=== PATIENT | female | born 1950 | race Two or more races ===

== ENCOUNTER 2020-05-04 14:59 | Inpatient (IN) | payer OTHER ==
[2020-05-04] VITALS (7 sets, daily range): BP systolic 109–140; BP diastolic 64–85
[~2020-05-04] VITALS: Ht 167.6 cm; Wt 131.1 kg
[2020-05-04] MEDS ORDERED: CEFTRIAXONE 1 G PREMIX 50 ML IV ONE (15:15)
[2020-05-04] MEDS ORDERED: SODIUM CHLORIDE 0.9% 1,000 ML IV ONE (15:15)
[2020-05-04] MEDS ORDERED: DEXAMETHASONE 10 MG/ML VIAL IV ONE (15:15)
[2020-05-04] MEDS ORDERED: AZITHROMYCIN 500 MG in DEXT 5% WATER 250 ML IV ONE (15:15)
[2020-05-04 16:11] LABS: BASOPHILS % 0.2 % (0.0-2.0); HEMATOCRIT. 41.1 % (36.0-48.0); HEMOGLOBIN. 12.9 g/dL (12.0-16.0); LYMPHOCYTES % 7.2 % (20.0-50.0); MEAN CORPUSCULAR HEMOGLOBIN 22.1 pg (28.0-32.0); MEAN CORPUSCULAR VOLUME 70.4 fL (81.0-99.0); MEAN PLATELET VOLUME 9.6 fl (7.4-10.4); MONOCYTES % 5.7 % (2.0-8.0); NEUTROPHILS % 86.9 % (40.0-76.0); PLATELET 232 x1000/uL (130-400); RED BLOOD CELL COUNT 5.84 mill/uL (4.2-5.4); RED CELL DISTRIBUTION WIDTH 17.1 % (11.6-14.6)
[2020-05-04 16:18] LABS: CHLORIDE 98 mEq/L (98-107)
[2020-05-04 16:25] LABS: D-DIMER 1.4 mg/L FEU (<0.50); PROTHROMBIN TIME 10.8 sec (9.6-11.0)
[2020-05-04 16:27] LABS: CREATINE KINASE 436 IU/L (26-192)
[2020-05-04] MEDS ORDERED: MAGNESIUM 2 G PREMIX 50 ML IV ONE (16:30)
[2020-05-04] MEDS ORDERED: IPRATROPIUM BROMIDE (0.02%) 0.5MG/2.5ML NEB HHN STA (16:31)
[2020-05-04] MEDS ORDERED: ALBUTEROL (0.083%) 2.5MG/3ML NEB HHN STA (16:31)
[2020-05-04] MEDS ORDERED: ALBUTEROL (0.083%) 2.5MG/3ML NEB ONE (16:57)
[2020-05-04] MEDS ORDERED: CLONIDINE 0.1MG TABLET PO PRN (17:30)
[2020-05-04] MEDS ORDERED: ENOXAPARIN 40MG/0.4ML SYR SUBCUT SCH (18:00)
[2020-05-04] MEDS ORDERED: DEXTROSE 50% WATER 50ML SYRINGE IV PRN (20:30)
[2020-05-04] MEDS: BLOOD SUGAR DIAGNOSTIC STRIP TEST SCH (21:58)
[2020-05-04 21:59] LABS: BG BASE EXCESS 0.7 mmol/L (-2.0-2.0); BG CARBOXYHEMOGLOBIN 0.4 % (0.5-1.5); BG DEOXYHEMOGLOBIN 5.4 % (0.0-5.0); BG FRACTION INSPIRED OXYGEN 100; BG HCO3 ACT 24.8 mmol/L (22.0-26.0); BG METHEMOGLOBIN 0.3 % (0.0-1.5); BG OXYGEN SATURATION 94.6 % (92.0-98.5); BG OXYHEMOGLOBIN 93.9 % (94.0-97.0); BG PCO2 37.8 mmHg (35.0-45.0); BG PH 7.434 (7.350-7.450); BG PO2 72.7 mmHg (75.0-100.0); BG SAMPLE SITE RIGHT RADIAL; BG TOTAL HEMOGLOBIN 12.5 g/dL (12.0-18.0); BG VENT MODE MASK - BIPAP
[2020-05-04] MEDS: INSULIN LISPRO 100 UNITS/ML SUBCUT SCH (22:00)
[2020-05-05] VITALS (48 sets, daily range): BP systolic 104–176; BP diastolic 54–99
[2020-05-05 05:01] LABS: BASOPHILS % 0.1 % (0.0-2.0); HEMATOCRIT. 35.7 % (36.0-48.0); HEMOGLOBIN. 11.3 g/dL (12.0-16.0); LYMPHOCYTES % 9.6 % (20.0-50.0); MEAN CORPUSCULAR HEMOGLOBIN 22.2 pg (28.0-32.0); MONOCYTES % 5.5 % (2.0-8.0); NEUTROPHILS % 84.8 % (40.0-76.0); RED CELL DISTRIBUTION WIDTH 17.1 % (11.6-14.6)
[2020-05-05 05:07] LABS: CHLORIDE 102 mEq/L (98-107)
[2020-05-05] MEDS: BLOOD SUGAR DIAGNOSTIC STRIP TEST SCH ×5 (06:17→21:55)
[2020-05-05] MEDS: INSULIN LISPRO 100 UNITS/ML SUBCUT SCH ×4 (06:17→21:00)
[2020-05-05] MEDS ORDERED: METF-414 PO (07:18)
[2020-05-05] MEDS ORDERED: AMLO5TAB88 PO (07:18)
[2020-05-05] MEDS ORDERED: ATOR20TA65 PO (07:18)
[2020-05-05] MEDS: ZINC SULFATE 220 MG ( 50 ) CAPSULE PO SCH (08:37)
[2020-05-05] MEDS: ERGOCALCIFEROL 50000UNITS CAPSULE PO SCH (08:37)
[2020-05-05] MEDS: ASCORBIC ACID 500 MG TABLET PO SCH ×2 (08:37→21:53)
[2020-05-05] MEDS: FAMOTIDINE 20MG/2ML VIAL IV SCH ×2 (08:39→21:53)
[2020-05-05] MEDS ORDERED: DEXAMETHASONE 10 MG/ML VIAL IV SCH (09:00)
[2020-05-05 09:04] LABS: BG CARBOXYHEMOGLOBIN 0.2 % (0.5-1.5); BG DEOXYHEMOGLOBIN 5.7 % (0.0-5.0); BG FRACTION INSPIRED OXYGEN 100; BG HCO3 ACT 27.7 mmol/L (22.0-26.0); BG METHEMOGLOBIN 0.4 % (0.0-1.5); BG OXYGEN SATURATION 94.3 % (92.0-98.5); BG OXYHEMOGLOBIN 93.7 % (94.0-97.0); BG PCO2 42.7 mmHg (35.0-45.0); BG PO2 70.9 mmHg (75.0-100.0); BG SAMPLE SITE LEFT RADIAL; BG TOTAL HEMOGLOBIN 12.3 g/dL (12.0-18.0); BG TOTAL RESPIRATORY RATE 31 b/min; BG VENT MODE MASK - BIPAP
[2020-05-05] MEDS ORDERED: GUAIFENESIN-DM 200MG-20MG/10ML UDC PO PRN (10:30)
[2020-05-05] MEDS ORDERED: DEXAMETHASONE 4MG/ML 1ML VIAL IV SCH (11:00)
[2020-05-05] MEDS ORDERED: LIDOCAINE HCL 1% 20ML VIAL (Pyxis) INJ ONE (11:09)
[2020-05-05] MEDS ORDERED: REMDESIVIR 200 MG in SODIUM CHLORIDE 0.9% 250 ML IV ONE (13:00)
[2020-05-05] MEDS: ALBUTEROL 6.7GM HFA INHALER ORI SCH ×3 (14:56→20:44)
[2020-05-05] MEDS: GUAIFENESIN 200MG/10ML SUGAR FREE UDC PO PRN ×2 (16:42→21:55)
[2020-05-05] MEDS: LORAZEPAM 0.5MG TABLET PO PRN (21:54)
[2020-05-05] MEDS: ONDANSETRON HCL 4MG/2ML INJ IV PRN (21:54)
[2020-05-05] MEDS: ENOXAPARIN 30MG/0.3ML SYR SUBCUT SCH (21:54)
[2020-05-05] MEDS: HYDROCODONE/ACETAMINOPHEN 5/325MG TABLET PO PRN (21:55)
[2020-05-06] VITALS (42 sets, daily range): BP systolic 93–151; BP diastolic 52–95
[2020-05-06] MEDS: ALBUTEROL 6.7GM HFA INHALER ORI SCH ×3 (00:30→20:26)
[2020-05-06] MEDS: HYDROCODONE/ACETAMINOPHEN 5/325MG TABLET PO PRN ×2 (05:19→22:02)
[2020-05-06 05:42] LABS: HEMATOCRIT. 34.5 % (36.0-48.0); MEAN CORPUSCULAR HEMOGLOBIN 22.2 pg (28.0-32.0); MEAN CORPUSCULAR VOLUME 69.7 fL (81.0-99.0); MEAN PLATELET VOLUME 9.3 fl (7.4-10.4); PLATELET 203 x1000/uL (130-400); RED BLOOD CELL COUNT 4.94 mill/uL (4.2-5.4); RED CELL DISTRIBUTION WIDTH 16.8 % (11.6-14.6)
[2020-05-06 05:49] LABS: CHLORIDE 104 mEq/L (98-107)
[2020-05-06 05:55] LABS: TOTAL IRON BINDING CAPACITY 146 ug/dL (250-450)
[2020-05-06 05:59] LABS: LDL CHOLESTEROL 24 mg/dL (5-100); PHOSPHORUS 3.4 mg/dL (2.5-4.9)
[2020-05-06 06:00] LABS: HDL CHOLESTEROL 46 mg/dL (40-59)
[2020-05-06] MEDS: BLOOD SUGAR DIAGNOSTIC STRIP TEST SCH ×3 (06:56→21:00)
[2020-05-06] MEDS: INSULIN LISPRO 100 UNITS/ML SUBCUT SCH ×3 (06:57→21:00)
[2020-05-06] MEDS: ASCORBIC ACID 500 MG TABLET PO SCH ×2 (09:00→22:00)
[2020-05-06] MEDS: ZINC SULFATE 220 MG ( 50 ) CAPSULE PO SCH (09:00)
[2020-05-06] MEDS: DEXAMETHASONE 10 MG/ML VIAL IV SCH (09:27)
[2020-05-06] MEDS: FAMOTIDINE 20MG/2ML VIAL IV SCH ×2 (09:27→22:00)
[2020-05-06] MEDS: GUAIFENESIN 200MG/10ML SUGAR FREE UDC PO PRN ×2 (09:27→22:02)
[2020-05-06] MEDS: ENOXAPARIN 30MG/0.3ML SYR SUBCUT SCH ×2 (09:27→22:00)
[2020-05-06 09:50] LABS: PLATELET ESTIMATE NORMAL
[2020-05-06] MEDS: REMDESIVIR 100 MG in SODIUM CHLORIDE 0.9% 250 ML IV SCH (13:19)
[2020-05-06] MEDS ORDERED: AZITHROMYCIN 500 MG in DEXT 5% WATER 250 ML IV SCH (16:00)
[2020-05-06] MEDS ORDERED: CEFTRIAXONE 1 G PREMIX 50 ML IV SCH (16:00)
[2020-05-06] MEDS: CEFTRIAXONE 1,000 MG in DEXTROSE 5% WATER 50 ML IV SCH (17:30)
[2020-05-06] MEDS: AZITHROMYCIN 500MG in DEXTROSE 5% WATER 250ML IV SCH (18:00)
[2020-05-06] MEDS: LORAZEPAM 0.5MG TABLET PO PRN (22:01)
[2020-05-06] MEDS: ONDANSETRON HCL 4MG/2ML INJ IV PRN (22:01)
[2020-05-07] VITALS (41 sets, daily range): BP systolic 77–164; BP diastolic 47–133
[2020-05-07] MEDS: ALBUTEROL 6.7GM HFA INHALER ORI SCH ×4 (01:23→21:12)
[2020-05-07 05:34] LABS: HEMATOCRIT. 34.5 % (36.0-48.0); HEMOGLOBIN. 10.9 g/dL (12.0-16.0); MEAN CORPUSCULAR HEMOGLOBIN 22.1 pg (28.0-32.0); MEAN CORPUSCULAR VOLUME 69.9 fL (81.0-99.0); MEAN PLATELET VOLUME 8.7 fl (7.4-10.4); RED BLOOD CELL COUNT 4.93 mill/uL (4.2-5.4); RED CELL DISTRIBUTION WIDTH 16.8 % (11.6-14.6)
[2020-05-07 05:37] LABS: CHLORIDE 104 mEq/L (98-107)
[2020-05-07] MEDS: BLOOD SUGAR DIAGNOSTIC STRIP TEST SCH ×4 (06:29→21:23)
[2020-05-07] MEDS: INSULIN LISPRO 100 UNITS/ML SUBCUT SCH ×3 (06:41→21:00)
[2020-05-07 08:01] LABS: PLATELET 146 x1000/uL (130-400)
[2020-05-07] MEDS: ZINC SULFATE 220 MG ( 50 ) CAPSULE PO SCH (09:00)
[2020-05-07] MEDS: ASCORBIC ACID 500 MG TABLET PO SCH ×2 (09:00→21:23)
[2020-05-07] MEDS: FAMOTIDINE 20MG/2ML VIAL IV SCH ×2 (09:51→21:23)
[2020-05-07] MEDS: DEXAMETHASONE 10 MG/ML VIAL IV SCH (09:51)
[2020-05-07] MEDS: ENOXAPARIN 30MG/0.3ML SYR SUBCUT SCH ×2 (09:53→21:00)
[2020-05-07 10:41] LABS: BG BASE EXCESS 4.5 mmol/L (-2.0-2.0); BG CARBOXYHEMOGLOBIN 2.8 % (0.5-1.5); BG DEOXYHEMOGLOBIN 13.8 % (0.0-5.0); BG FRACTION INSPIRED OXYGEN 100; BG HCO3 ACT 28.3 mmol/L (22.0-26.0); BG METHEMOGLOBIN 0.5 % (0.0-1.5); BG OXYHEMOGLOBIN 82.9 % (94.0-97.0); BG PCO2 39.2 mmHg (35.0-45.0); BG PH 7.476 (7.350-7.450); BG PO2 44.8 mmHg (75.0-100.0); BG SAMPLE SITE RIGHT RADIAL; BG TOTAL HEMOGLOBIN 9.1 g/dL (12.0-18.0); BG TOTAL RESPIRATORY RATE 34 b/min; BG VENT MODE MASK - BIPAP
[2020-05-07] MEDS: REMDESIVIR 100 MG in SODIUM CHLORIDE 0.9% 250 ML IV SCH (13:00)
[2020-05-07] MEDS: CEFTRIAXONE 1,000 MG in DEXTROSE 5% WATER 50 ML IV SCH (17:30)
[2020-05-07] MEDS: AZITHROMYCIN 500MG in DEXTROSE 5% WATER 250ML IV SCH (19:43)
[2020-05-07] MEDS ORDERED: BENZONATATE 100MG CAPSULE PO PRN (22:45)
[2020-05-08] VITALS (47 sets, daily range): BP systolic 105–166; BP diastolic 70–111
[2020-05-08 05:19] LABS: CHLORIDE 103 mEq/L (98-107); HEMATOCRIT. 35.8 % (36.0-48.0); MEAN CORPUSCULAR HEMOGLOBIN 21.6 pg (28.0-32.0); MEAN CORPUSCULAR VOLUME 70.3 fL (81.0-99.0); MEAN PLATELET VOLUME 8.5 fl (7.4-10.4); PLATELET 146 x1000/uL (130-400); RED BLOOD CELL COUNT 5.09 mill/uL (4.2-5.4); RED CELL DISTRIBUTION WIDTH 16.9 % (11.6-14.6)
[2020-05-08] MEDS: BLOOD SUGAR DIAGNOSTIC STRIP TEST SCH ×4 (06:18→21:00)
[2020-05-08] MEDS: INSULIN LISPRO 100 UNITS/ML SUBCUT SCH ×4 (06:19→21:00)
[2020-05-08] MEDS: ENOXAPARIN 30MG/0.3ML SYR SUBCUT SCH ×2 (09:00→20:25)
[2020-05-08] MEDS: ALBUTEROL 6.7GM HFA INHALER ORI SCH ×4 (09:20→20:20)
[2020-05-08] MEDS: ZINC SULFATE 220 MG ( 50 ) CAPSULE PO SCH (10:00)
[2020-05-08] MEDS: FAMOTIDINE 20MG/2ML VIAL IV SCH ×2 (10:00→20:24)
[2020-05-08] MEDS: DEXAMETHASONE 10 MG/ML VIAL IV SCH (10:00)
[2020-05-08] MEDS: ASCORBIC ACID 500 MG TABLET PO SCH ×2 (10:01→20:24)
[2020-05-08] MEDS: LORAZEPAM 2MG/ML CPJ IV PRN ×2 (10:03→20:26)
[2020-05-08] MEDS: REMDESIVIR 100 MG in SODIUM CHLORIDE 0.9% 250 ML IV SCH (13:00)
[2020-05-08 17:15] LABS: PLATELET ESTIMATE NORMAL
[2020-05-08] MEDS: CEFTRIAXONE 1,000 MG in DEXTROSE 5% WATER 50 ML IV SCH (17:42)
[2020-05-08] MEDS: AZITHROMYCIN 500MG in DEXTROSE 5% WATER 250ML IV SCH (17:44)
[2020-05-08] MEDS: MORPHINE SULFATE 2 MG/ML CPJ (NOT FOR IM USE) IV PRN (20:27)
[2020-05-08] MEDS: ONDANSETRON HCL 4MG/2ML INJ IV PRN (20:27)
[2020-05-08] MEDS: ACETAMINOPHEN 325MG TABLET PO PRN (20:30)
[2020-05-09] VITALS (45 sets, daily range): BP systolic 121–155; BP diastolic 46–110
[2020-05-09] MEDS: ALBUTEROL 6.7GM HFA INHALER ORI SCH ×3 (02:20→15:25)
[2020-05-09 04:35] LABS: HEMOGLOBIN. 9.4 g/dL (12.0-16.0); MEAN CORPUSCULAR HEMOGLOBIN 21.9 pg (28.0-32.0); MEAN CORPUSCULAR VOLUME 69.7 fL (81.0-99.0); MEAN PLATELET VOLUME 8.5 fl (7.4-10.4); PLATELET 97 x1000/uL (130-400); RED CELL DISTRIBUTION WIDTH 16.5 % (11.6-14.6)
[2020-05-09 04:47] LABS: CHLORIDE 107 mEq/L (98-107)
[2020-05-09] MEDS: BLOOD SUGAR DIAGNOSTIC STRIP TEST SCH ×4 (06:17→21:56)
[2020-05-09] MEDS: INSULIN LISPRO 100 UNITS/ML SUBCUT SCH ×3 (06:18→21:00)
[2020-05-09] MEDS: ENOXAPARIN 30MG/0.3ML SYR SUBCUT SCH ×2 (09:00→21:55)
[2020-05-09] MEDS: DEXAMETHASONE 10 MG/ML VIAL IV SCH (09:00)
[2020-05-09] MEDS: FAMOTIDINE 20MG/2ML VIAL IV SCH ×2 (09:00→21:54)
[2020-05-09] MEDS ORDERED: DEXAMETHASONE 4MG/ML 1ML VIAL IV SCH (09:00)
[2020-05-09] MEDS: ZINC SULFATE 220 MG ( 50 ) CAPSULE PO SCH (09:00)
[2020-05-09 13:34] LABS: PLATELET ESTIMATE DECREASED
[2020-05-09] MEDS: CEFTRIAXONE 1,000 MG in DEXTROSE 5% WATER 50 ML IV SCH (17:30)
[2020-05-09] MEDS: AZITHROMYCIN 500MG in DEXTROSE 5% WATER 250ML IV SCH (18:00)
[2020-05-09] MEDS: ASCORBIC ACID 500 MG TABLET PO SCH ×2 (21:00→21:55)
[2020-05-09] MEDS: ONDANSETRON HCL 4MG/2ML INJ IV PRN (21:55)
[2020-05-10] VITALS (45 sets, daily range): BP systolic 112–160; BP diastolic 70–113
[2020-05-10] MEDS: ALBUTEROL 6.7GM HFA INHALER ORI SCH ×6 (02:40→22:06)
[2020-05-10 05:37] LABS: HEMATOCRIT. 36.5 % (36.0-48.0); HEMOGLOBIN. 11.4 g/dL (12.0-16.0); MEAN CORPUSCULAR VOLUME 70.3 fL (81.0-99.0); RED BLOOD CELL COUNT 5.18 mill/uL (4.2-5.4); RED CELL DISTRIBUTION WIDTH 16.9 % (11.6-14.6)
[2020-05-10 05:43] LABS: CHLORIDE 107 mEq/L (98-107)
[2020-05-10] MEDS: INSULIN LISPRO 100 UNITS/ML SUBCUT SCH ×4 (07:00→21:00)
[2020-05-10] MEDS: BLOOD SUGAR DIAGNOSTIC STRIP TEST SCH ×4 (07:12→21:03)
[2020-05-10] MEDS: FAMOTIDINE 20MG/2ML VIAL IV SCH ×2 (08:29→21:01)
[2020-05-10] MEDS: DEXAMETHASONE 10 MG/ML VIAL IV SCH (08:29)
[2020-05-10] MEDS: ZINC SULFATE 220 MG ( 50 ) CAPSULE PO SCH (08:29)
[2020-05-10] MEDS: ASCORBIC ACID 500 MG TABLET PO SCH ×2 (08:31→21:01)
[2020-05-10] MEDS: ENOXAPARIN 30MG/0.3ML SYR SUBCUT SCH ×2 (11:14→21:00)
[2020-05-10 11:18] LABS: BG BASE EXCESS 3.9 mmol/L (-2.0-2.0); BG CARBOXYHEMOGLOBIN 0.6 % (0.5-1.5); BG FRACTION INSPIRED OXYGEN 100; BG HCO3 ACT 28.6 mmol/L (22.0-26.0); BG METHEMOGLOBIN 0.3 % (0.0-1.5); BG OXYGEN SATURATION 93.9 % (92.0-98.5); BG OXYHEMOGLOBIN 93.1 % (94.0-97.0); BG PCO2 43.2 mmHg (35.0-45.0); BG PH 7.438 (7.350-7.450); BG SAMPLE SITE LEFT RADIAL; BG TOTAL HEMOGLOBIN 12.9 g/dL (12.0-18.0); BG TOTAL RESPIRATORY RATE 32 b/min; BG VENT MODE MASK - BIPAP
[2020-05-10] MEDS ORDERED: LIDOCAINE HCL/PF 1% 2ML VIAL ONE (12:00)
[2020-05-10] MEDS: CEFTRIAXONE 1,000 MG in DEXTROSE 5% WATER 50 ML IV SCH (17:48)
[2020-05-10] MEDS: AZITHROMYCIN 500MG in DEXTROSE 5% WATER 250ML IV SCH (17:48)
[2020-05-10] MEDS: ONDANSETRON HCL 4MG/2ML INJ IV PRN (20:58)
[2020-05-10] MEDS: ACETAMINOPHEN 325MG TABLET PO PRN (20:59)
[2020-05-10] MEDS: LORAZEPAM 2MG/ML CPJ IV PRN (21:00)
[2020-05-11] VITALS (43 sets, daily range): BP systolic 110–155; BP diastolic 67–110
[2020-05-11] MEDS: ALBUTEROL 6.7GM HFA INHALER ORI SCH ×4 (05:11→20:46)
[2020-05-11 05:28] LABS: HEMATOCRIT. 34.2 % (36.0-48.0); HEMOGLOBIN. 10.4 g/dL (12.0-16.0); MEAN CORPUSCULAR HEMOGLOBIN 21.5 pg (28.0-32.0); MEAN CORPUSCULAR VOLUME 70.6 fL (81.0-99.0); MEAN PLATELET VOLUME 8.8 fl (7.4-10.4); RED BLOOD CELL COUNT 4.85 mill/uL (4.2-5.4); RED CELL DISTRIBUTION WIDTH 16.9 % (11.6-14.6)
[2020-05-11 05:29] LABS: CHLORIDE 116 mEq/L (98-107)
[2020-05-11] MEDS: LORAZEPAM 2MG/ML CPJ IV PRN ×2 (07:07→17:48)
[2020-05-11] MEDS: ZINC SULFATE 220 MG ( 50 ) CAPSULE PO SCH (08:34)
[2020-05-11] MEDS: ASCORBIC ACID 500 MG TABLET PO SCH ×2 (08:34→21:42)
[2020-05-11] MEDS: FAMOTIDINE 20MG/2ML VIAL IV SCH ×2 (08:34→21:42)
[2020-05-11] MEDS: DEXAMETHASONE 10 MG/ML VIAL IV SCH (08:34)
[2020-05-11] MEDS: ENOXAPARIN 30MG/0.3ML SYR SUBCUT SCH ×2 (08:35→21:42)
[2020-05-11 09:34] LABS: PLATELET 102 x1000/uL (130-400)
[2020-05-11 09:51] LABS: BG BASE EXCESS 3.7 mmol/L (-2.0-2.0); BG CARBOXYHEMOGLOBIN 0.3 % (0.5-1.5); BG FRACTION INSPIRED OXYGEN 100; BG HCO3 ACT 28.4 mmol/L (22.0-26.0); BG METHEMOGLOBIN 0.3 % (0.0-1.5); BG OXYHEMOGLOBIN 94.4 % (94.0-97.0); BG PCO2 42.8 mmHg (35.0-45.0); BG PH 7.439 (7.350-7.450); BG PO2 76.5 mmHg (75.0-100.0); BG SAMPLE SITE RIGHT RADIAL; BG TOTAL HEMOGLOBIN 12.9 g/dL (12.0-18.0); BG TOTAL RESPIRATORY RATE 34 b/min; BG VENT MODE MASK - BIPAP
[2020-05-11] MEDS: DEXT 5%/0.9% NACL 1,000 ML IV SCH ×2 (10:34→20:15)
[2020-05-11] MEDS: BLOOD SUGAR DIAGNOSTIC STRIP TEST SCH ×3 (11:30→21:43)
[2020-05-11] MEDS: INSULIN LISPRO 100 UNITS/ML SUBCUT SCH ×3 (12:47→21:00)
[2020-05-11] MEDS: CEFTRIAXONE 1,000 MG in DEXTROSE 5% WATER 50 ML IV SCH (17:15)
[2020-05-11] MEDS: MORPHINE SULFATE 2 MG/ML CPJ (NOT FOR IM USE) IV PRN (21:43)
[2020-05-11] MEDS: GUAIFENESIN 200MG/10ML SUGAR FREE UDC PO PRN (21:46)
[2020-05-11] MEDS: ONDANSETRON HCL 4MG/2ML INJ IV PRN (21:46)
[2020-05-12] VITALS (32 sets, daily range): BP systolic 104–156; BP diastolic 35–114
[2020-05-12] MEDS: LORAZEPAM 2MG/ML CPJ IV PRN (00:17)
[2020-05-12] MEDS: ALBUTEROL 6.7GM HFA INHALER ORI SCH ×3 (02:39→20:15)
[2020-05-12 05:31] LABS: CHLORIDE 117 mEq/L (98-107)
[2020-05-12 05:43] LABS: HEMATOCRIT. 39.1 % (36.0-48.0); MEAN CORPUSCULAR HEMOGLOBIN 21.9 pg (28.0-32.0); MEAN CORPUSCULAR VOLUME 71.7 fL (81.0-99.0); MEAN PLATELET VOLUME 9.9 fl (7.4-10.4); PLATELET 138 x1000/uL (130-400); RED BLOOD CELL COUNT 5.45 mill/uL (4.2-5.4)
[2020-05-12] MEDS: BLOOD SUGAR DIAGNOSTIC STRIP TEST SCH ×4 (06:14→21:00)
[2020-05-12] MEDS: INSULIN LISPRO 100 UNITS/ML SUBCUT SCH ×4 (06:15→21:00)
[2020-05-12] MEDS: DEXT 5%/0.9% NACL 1,000 ML IV SCH ×2 (08:15→16:07)
[2020-05-12 09:43] LABS: NUCLEATED RED BLOOD CELLS 1 /100 WBC; PLATELET ESTIMATE NORMAL
[2020-05-12] MEDS: ENOXAPARIN 30MG/0.3ML SYR SUBCUT SCH ×2 (10:07→20:25)
[2020-05-12] MEDS: ZINC SULFATE 220 MG ( 50 ) CAPSULE PO SCH (10:07)
[2020-05-12] MEDS: FAMOTIDINE 20MG/2ML VIAL IV SCH ×2 (10:07→20:25)
[2020-05-12] MEDS: DEXAMETHASONE 10 MG/ML VIAL IV SCH (10:07)
[2020-05-12] MEDS: ASCORBIC ACID 500 MG TABLET PO SCH ×3 (10:07→21:00)
[2020-05-12] MEDS: ERGOCALCIFEROL 50000UNITS CAPSULE PO SCH (10:09)
[2020-05-12 12:04] LABS: BG BASE EXCESS 2.5 mmol/L (-2.0-2.0); BG CARBOXYHEMOGLOBIN 0.5 % (0.5-1.5); BG DEOXYHEMOGLOBIN 11.6 % (0.0-5.0); BG FRACTION INSPIRED OXYGEN 100; BG HCO3 ACT 27.3 mmol/L (22.0-26.0); BG METHEMOGLOBIN 0.3 % (0.0-1.5); BG OXYGEN SATURATION 88.3 % (92.0-98.5); BG OXYHEMOGLOBIN 87.6 % (94.0-97.0); BG PCO2 42.7 mmHg (35.0-45.0); BG PH 7.423 (7.350-7.450); BG PO2 54.2 mmHg (75.0-100.0); BG SAMPLE SITE RIGHT RADIAL; BG TOTAL HEMOGLOBIN 12.5 g/dL (12.0-18.0); BG VENT MODE MASK - BIPAP
[2020-05-12] MEDS: ACETAMINOPHEN 325MG TABLET PO PRN (21:23)
[2020-05-12] MEDS: PIPERACILLIN/TAZOBACTAM 3.375 G in DEXT 5% WATER 100 ML IV SCH (23:05)
[2020-05-13] VITALS (31 sets, daily range): BP systolic 134–173; BP diastolic 85–112
[2020-05-13] MEDS: ALBUTEROL 6.7GM HFA INHALER ORI SCH ×5 (01:29→20:25)
[2020-05-13] MEDS: DEXT 5%/0.9% NACL 1,000 ML IV SCH (02:05)
[2020-05-13 05:55] LABS: CHLORIDE 119 mEq/L (98-107)
[2020-05-13 06:04] LABS: HEMATOCRIT. 36.9 % (36.0-48.0); HEMOGLOBIN. 11.2 g/dL (12.0-16.0); MEAN CORPUSCULAR HEMOGLOBIN 21.8 pg (28.0-32.0); MEAN CORPUSCULAR VOLUME 71.7 fL (81.0-99.0); MEAN PLATELET VOLUME 9.9 fl (7.4-10.4); PLATELET 130 x1000/uL (130-400); RED BLOOD CELL COUNT 5.15 mill/uL (4.2-5.4); RED CELL DISTRIBUTION WIDTH 16.7 % (11.6-14.6)
[2020-05-13] MEDS: PIPERACILLIN/TAZOBACTAM 3.375 G in DEXT 5% WATER 100 ML IV SCH ×4 (06:12→23:21)
[2020-05-13] MEDS: BLOOD SUGAR DIAGNOSTIC STRIP TEST SCH ×4 (06:22→21:00)
[2020-05-13] MEDS: INSULIN LISPRO 100 UNITS/ML SUBCUT SCH ×4 (06:22→21:00)
[2020-05-13 08:22] LABS: PLATELET ESTIMATE NORMAL
[2020-05-13] MEDS: DEXTROSE 5% WATER 1,000 ML IV SCH ×2 (08:52→23:45)
[2020-05-13] MEDS: ZINC SULFATE 220 MG ( 50 ) CAPSULE PO SCH (08:52)
[2020-05-13] MEDS: DEXAMETHASONE 10 MG/ML VIAL IV SCH (08:52)
[2020-05-13] MEDS: ENOXAPARIN 30MG/0.3ML SYR SUBCUT SCH ×2 (08:52→21:21)
[2020-05-13] MEDS: ASCORBIC ACID 500 MG TABLET PO SCH ×2 (08:52→21:00)
[2020-05-13] MEDS: FAMOTIDINE 20MG/2ML VIAL IV SCH ×2 (08:53→21:21)
[2020-05-13 09:37] LABS: BG BASE EXCESS 4.4 mmol/L (-2.0-2.0); BG CARBOXYHEMOGLOBIN 0.6 % (0.5-1.5); BG FRACTION INSPIRED OXYGEN 100; BG HCO3 ACT 29.1 mmol/L (22.0-26.0); BG METHEMOGLOBIN 0.3 % (0.0-1.5); BG OXYGEN SATURATION 91.9 % (92.0-98.5); BG OXYHEMOGLOBIN 91.1 % (94.0-97.0); BG PCO2 44.1 mmHg (35.0-45.0); BG PH 7.438 (7.350-7.450); BG PO2 59.1 mmHg (75.0-100.0); BG SAMPLE SITE LEFT RADIAL; BG TOTAL HEMOGLOBIN 12.4 g/dL (12.0-18.0); BG VENT MODE MASK - BIPAP
[2020-05-14] VITALS (45 sets, daily range): BP systolic 110–165; BP diastolic 62–112
[2020-05-14] MEDS: ALBUTEROL 6.7GM HFA INHALER ORI SCH ×4 (00:22→21:03)
[2020-05-14 05:04] LABS: CHLORIDE 111 mEq/L (98-107)
[2020-05-14] MEDS: PIPERACILLIN/TAZOBACTAM 3.375 G in DEXT 5% WATER 100 ML IV SCH ×4 (05:18→23:55)
[2020-05-14] MEDS: BLOOD SUGAR DIAGNOSTIC STRIP TEST SCH ×4 (05:38→21:00)
[2020-05-14] MEDS: INSULIN LISPRO 100 UNITS/ML SUBCUT SCH ×4 (06:53→21:00)
[2020-05-14 08:48] LABS: HEMATOCRIT. 37.5 % (36.0-48.0); HEMOGLOBIN. 11.3 g/dL (12.0-16.0); MEAN CORPUSCULAR HEMOGLOBIN 21.5 pg (28.0-32.0); MEAN CORPUSCULAR VOLUME 71.4 fL (81.0-99.0); MEAN PLATELET VOLUME 10.1 fl (7.4-10.4); PLATELET 139 x1000/uL (130-400); RED BLOOD CELL COUNT 5.26 mill/uL (4.2-5.4); RED CELL DISTRIBUTION WIDTH 16.9 % (11.6-14.6)
[2020-05-14] MEDS: ASCORBIC ACID 500 MG TABLET PO SCH ×2 (09:53→21:00)
[2020-05-14] MEDS: FAMOTIDINE 20MG/2ML VIAL IV SCH ×2 (09:53→20:56)
[2020-05-14] MEDS: DEXAMETHASONE 10 MG/ML VIAL IV SCH (09:53)
[2020-05-14] MEDS: ENOXAPARIN 30MG/0.3ML SYR SUBCUT SCH ×2 (09:54→20:56)
[2020-05-14] MEDS: ZINC SULFATE 220 MG ( 50 ) CAPSULE PO SCH (09:59)
[2020-05-14 10:00] LABS: PLATELET ESTIMATE NORMAL
[2020-05-14] MEDS: DEXTROSE 5% WATER 1,000 ML IV SCH (12:41)
[2020-05-14] MEDS: LABETALOL 5MG/ML SYR 20 MG/4 ML SYRINGE IV PRN (18:08)
[2020-05-15] VITALS (46 sets, daily range): BP systolic 113–154; BP diastolic 61–123
[2020-05-15] MEDS: DEXTROSE 5% WATER 1,000 ML IV SCH ×2 (00:44→13:34)
[2020-05-15] MEDS: ALBUTEROL 6.7GM HFA INHALER ORI SCH ×4 (00:46→21:13)
[2020-05-15] MEDS: PIPERACILLIN/TAZOBACTAM 3.375 G in DEXT 5% WATER 100 ML IV SCH ×3 (05:21→17:32)
[2020-05-15 06:05] LABS: CHLORIDE 103 mEq/L (98-107)
[2020-05-15] MEDS: INSULIN LISPRO 100 UNITS/ML SUBCUT SCH ×4 (06:38→21:00)
[2020-05-15] MEDS: BLOOD SUGAR DIAGNOSTIC STRIP TEST SCH ×4 (06:38→21:00)
[2020-05-15 08:41] LABS: HEMATOCRIT. 36.5 % (36.0-48.0); HEMOGLOBIN. 11.1 g/dL (12.0-16.0); MEAN CORPUSCULAR HEMOGLOBIN 21.8 pg (28.0-32.0); MEAN CORPUSCULAR VOLUME 71.6 fL (81.0-99.0); MEAN PLATELET VOLUME 9.9 fl (7.4-10.4); PLATELET 108 x1000/uL (130-400); RED CELL DISTRIBUTION WIDTH 16.8 % (11.6-14.6)
[2020-05-15] MEDS: ZINC SULFATE 220 MG ( 50 ) CAPSULE PO SCH (09:00)
[2020-05-15 09:59] LABS: PLATELET ESTIMATE SLIGHTLY DECREASED
[2020-05-15] MEDS: ASCORBIC ACID 500 MG TABLET PO SCH ×2 (09:59→21:00)
[2020-05-15] MEDS: ENOXAPARIN 30MG/0.3ML SYR SUBCUT SCH ×2 (09:59→21:24)
[2020-05-15] MEDS: FAMOTIDINE 20MG/2ML VIAL IV SCH ×2 (09:59→21:24)
[2020-05-15] MEDS: DEXAMETHASONE 4MG/ML 1ML VIAL IV SCH (10:00)
[2020-05-15 10:16] LABS: BG BASE EXCESS 2.1 mmol/L (-2.0-2.0); BG CARBOXYHEMOGLOBIN 0.4 % (0.5-1.5); BG DEOXYHEMOGLOBIN 7.1 % (0.0-5.0); BG FRACTION INSPIRED OXYGEN 100; BG HCO3 ACT 27.4 mmol/L (22.0-26.0); BG METHEMOGLOBIN 0.3 % (0.0-1.5); BG OXYGEN SATURATION 92.8 % (92.0-98.5); BG OXYHEMOGLOBIN 92.2 % (94.0-97.0); BG PCO2 45.6 mmHg (35.0-45.0); BG PH 7.396 (7.350-7.450); BG PO2 64.4 mmHg (75.0-100.0); BG SAMPLE SITE RIGHT RADIAL; BG TOTAL HEMOGLOBIN 11.6 g/dL (12.0-18.0); BG TOTAL RESPIRATORY RATE 36 b/min; BG VENT MODE MASK - BIPAP
[2020-05-16] VITALS (43 sets, daily range): BP systolic 83–152; BP diastolic 55–110
[2020-05-16] MEDS: ALBUTEROL 6.7GM HFA INHALER ORI SCH ×2 (02:49→09:02)
[2020-05-16] MEDS: DEXTROSE 5% WATER 1,000 ML IV SCH ×3 (03:00→14:49)
[2020-05-16] MEDS: PIPERACILLIN/TAZOBACTAM 3.375 G in DEXT 5% WATER 100 ML IV SCH ×5 (06:00→18:43)
[2020-05-16 06:27] LABS: CHLORIDE 100 mEq/L (98-107)
[2020-05-16] MEDS: BLOOD SUGAR DIAGNOSTIC STRIP TEST SCH ×4 (06:30→21:55)
[2020-05-16] MEDS: INSULIN LISPRO 100 UNITS/ML SUBCUT SCH ×4 (07:00→21:00)
[2020-05-16] MEDS: ZINC SULFATE 220 MG ( 50 ) CAPSULE PO SCH (09:00)
[2020-05-16] MEDS: ASCORBIC ACID 500 MG TABLET PO SCH ×2 (09:00→21:00)
[2020-05-16] MEDS: ENOXAPARIN 30MG/0.3ML SYR SUBCUT SCH (09:20)
[2020-05-16] MEDS: FAMOTIDINE 20MG/2ML VIAL IV SCH ×2 (09:23→21:55)
[2020-05-16] MEDS: DEXAMETHASONE 4MG/ML 1ML VIAL IV SCH (09:23)
[2020-05-16 09:38] LABS: HEMATOCRIT. 39.7 % (36.0-48.0); HEMOGLOBIN. 11.9 g/dL (12.0-16.0); MEAN CORPUSCULAR HEMOGLOBIN 21.9 pg (28.0-32.0); MEAN CORPUSCULAR VOLUME 72.8 fL (81.0-99.0); MEAN PLATELET VOLUME 9.1 fl (7.4-10.4); PLATELET 68 x1000/uL (130-400); RED BLOOD CELL COUNT 5.46 mill/uL (4.2-5.4); RED CELL DISTRIBUTION WIDTH 16.8 % (11.6-14.6)
[2020-05-16 10:28] LABS: PLATELET ESTIMATE DECREASED
[2020-05-16] MEDS ORDERED: PROPOFOL 10MG/ML 100ML 100 ML IV PRN (15:00)
[2020-05-16] MEDS ORDERED: IPRATROPIUM/ALBUTEROL 0.5-3(2.5)MG/3ML NEB HHN PRN (15:00)
[2020-05-16] MEDS: FENTANYL CITRATE/PF 2,500 MCG in SODIUM CHLORIDE 0.9% 200 ML IV PRN (16:05)
[2020-05-16 17:37] LABS: BG BASE EXCESS 2.7 mmol/L (-2.0-2.0); BG CARBOXYHEMOGLOBIN 0.3 % (0.5-1.5); BG DEOXYHEMOGLOBIN 1.9 % (0.0-5.0); BG FRACTION INSPIRED OXYGEN 100; BG HCO3 ACT 28.9 mmol/L (22.0-26.0); BG METHEMOGLOBIN 0.6 % (0.0-1.5); BG OXYGEN SATURATION 98.1 % (92.0-98.5); BG OXYHEMOGLOBIN 97.2 % (94.0-97.0); BG PCO2 51.2 mmHg (35.0-45.0); BG PH 7.369 (7.350-7.450); BG PO2 126.6 mmHg (75.0-100.0); BG SAMPLE SITE LEFT RADIAL; BG TOTAL RESPIRATORY RATE 21 b/min; BG VENT MODE PRVC AC
[2020-05-16] MEDS: IPRATROPIUM/ALBUTEROL 0.5-3(2.5)MG/3ML NEB HHN SCH (21:00)
[2020-05-16] MEDS: ACETYLCYSTEINE 100MG/ML 10% VIAL 4ML INH SCH (21:00)
[2020-05-17] VITALS (94 sets, daily range): BP systolic 82–145; BP diastolic 47–82
[2020-05-17] MEDS: PIPERACILLIN/TAZOBACTAM 3.375 G in DEXT 5% WATER 100 ML IV SCH ×2 (00:22→08:47)
[2020-05-17] MEDS: IPRATROPIUM/ALBUTEROL 0.5-3(2.5)MG/3ML NEB HHN SCH ×6 (00:24→20:46)
[2020-05-17 06:01] LABS: HEMATOCRIT. 32.8 % (36.0-48.0); HEMOGLOBIN. 10.5 g/dL (12.0-16.0); MEAN CORPUSCULAR HEMOGLOBIN 22.3 pg (28.0-32.0); MEAN CORPUSCULAR VOLUME 69.7 fL (81.0-99.0); RED BLOOD CELL COUNT 4.71 mill/uL (4.2-5.4); RED CELL DISTRIBUTION WIDTH 16.6 % (11.6-14.6)
[2020-05-17] MEDS: BLOOD SUGAR DIAGNOSTIC STRIP TEST SCH ×4 (06:16→20:36)
[2020-05-17] MEDS: INSULIN LISPRO 100 UNITS/ML SUBCUT SCH ×4 (06:16→21:26)
[2020-05-17] MEDS: FAMOTIDINE 20MG/2ML VIAL IV SCH (08:46)
[2020-05-17] MEDS: ZINC SULFATE 220 MG ( 50 ) CAPSULE PO SCH (08:46)
[2020-05-17] MEDS: DEXAMETHASONE 4MG/ML 1ML VIAL IV SCH (08:46)
[2020-05-17] MEDS: DEXTROSE 5% WATER 1,000 ML IV SCH (08:47)
[2020-05-17] MEDS: ASCORBIC ACID 500 MG TABLET PO SCH ×2 (08:47→20:35)
[2020-05-17] MEDS: ACETYLCYSTEINE 100MG/ML 10% VIAL 4ML INH SCH ×2 (09:16→16:54)
[2020-05-17 09:23] LABS: BG CARBOXYHEMOGLOBIN 0.3 % (0.5-1.5); BG DEOXYHEMOGLOBIN 1.1 % (0.0-5.0); BG FRACTION INSPIRED OXYGEN 100; BG HCO3 ACT 24.9 mmol/L (22.0-26.0); BG METHEMOGLOBIN 0.3 % (0.0-1.5); BG OXYGEN SATURATION 98.9 % (92.0-98.5); BG OXYHEMOGLOBIN 98.3 % (94.0-97.0); BG PCO2 46.3 mmHg (35.0-45.0); BG PH 7.348 (7.350-7.450); BG PO2 161.1 mmHg (75.0-100.0); BG SAMPLE SITE RIGHT RADIAL; BG TOTAL HEMOGLOBIN 11.6 g/dL (12.0-18.0); BG VENT MODE PRVC
[2020-05-17 10:59] LABS: MEAN PLATELET VOLUME 9.5 fl (7.4-10.4); PLATELET 102 x1000/uL (130-400)
[2020-05-17 11:00] LABS: PLATELET ESTIMATE SLIGHTLY DECREASED
[2020-05-17] MEDS: SODIUM CHLORIDE 0.9% 1,000 ML IV SCH (12:50)
[2020-05-17] MEDS: ENOXAPARIN 30MG/0.3ML SYR SUBCUT SCH ×2 (12:51→20:36)
[2020-05-17] MEDS ORDERED: CEFEPIME 1,000 MG in DEXTROSE 5% WATER 50 ML IV SCH (13:00)
[2020-05-17] MEDS ORDERED: SODIUM CHLORIDE 0.9% 500 ML IV NR (14:42)
[2020-05-17] MEDS: FENTANYL CITRATE/PF 2,500 MCG in SODIUM CHLORIDE 0.9% 200 ML IV PRN (14:55)
[2020-05-17] MEDS ORDERED: POTASSIUM CHLORIDE INJ 40 MEQ in DEXT 5% WATER 500 ML IV NR (16:00)
[2020-05-17 17:25] LABS: CLARITY URINE TURBID (CLEAR); COLOR URINE ORANGE (YELLOW); KETONES URINE NEGATIVE (NEGATIVE); LEUKOCYTE ESTERASE URINE 2+ (NEGATIVE); NITRITE URINE NEGATIVE (NEGATIVE); OCCULT BLOOD URINE 3+ (NEGATIVE); PROTEIN URINE 3+ (NEGATIVE); SPECIFIC GRAVITY URINE 1.023 (1.005-1.030)
[2020-05-17 20:29] LABS: HEPATITIS B SURFACE ANTIGEN NEGATIVE
[2020-05-17 20:59] LABS: HEPATITIS A AB IGM NEGATIVE (NEGATIVE)
[2020-05-17] MEDS: NOREPINEPHRINE 32 MG in DEXT 5% WATER 218 ML IV PRN (21:27)
[2020-05-18] VITALS (95 sets, daily range): BP systolic 73–195; BP diastolic 44–115
[2020-05-18] MEDS: SODIUM CHLORIDE 0.9% 1,000 ML IV SCH (00:18)
[2020-05-18] MEDS: ACETYLCYSTEINE 100MG/ML 10% VIAL 4ML INH SCH ×3 (00:28→16:40)
[2020-05-18] MEDS: IPRATROPIUM/ALBUTEROL 0.5-3(2.5)MG/3ML NEB HHN SCH ×6 (00:28→20:40)
[2020-05-18 05:53] LABS: HEMATOCRIT. 31.9 % (36.0-48.0); MEAN CORPUSCULAR HEMOGLOBIN 21.6 pg (28.0-32.0); MEAN CORPUSCULAR VOLUME 69.2 fL (81.0-99.0); MEAN PLATELET VOLUME 9.6 fl (7.4-10.4); PLATELET 141 x1000/uL (130-400); RED BLOOD CELL COUNT 4.61 mill/uL (4.2-5.4); RED CELL DISTRIBUTION WIDTH 16.6 % (11.6-14.6)
[2020-05-18 06:02] LABS: INR 1.1; PROTHROMBIN TIME 11.5 sec (9.6-11.0)
[2020-05-18 06:12] LABS: CHLORIDE 94 mEq/L (98-107)
[2020-05-18 06:18] LABS: PHOSPHORUS 4.8 mg/dL (2.5-4.9)
[2020-05-18] MEDS: INSULIN LISPRO 100 UNITS/ML SUBCUT SCH ×4 (06:53→21:00)
[2020-05-18] MEDS: BLOOD SUGAR DIAGNOSTIC STRIP TEST SCH ×4 (06:53→21:00)
[2020-05-18] MEDS: ASCORBIC ACID 500 MG TABLET PO SCH ×2 (08:29→20:53)
[2020-05-18] MEDS: ENOXAPARIN 30MG/0.3ML SYR SUBCUT SCH ×2 (08:29→20:53)
[2020-05-18] MEDS: FAMOTIDINE 20MG/2ML VIAL IV SCH (08:29)
[2020-05-18] MEDS: ZINC SULFATE 220 MG ( 50 ) CAPSULE PO SCH (08:29)
[2020-05-18 09:10] LABS: BG BASE EXCESS -0.7 mmol/L (-2.0-2.0); BG CARBOXYHEMOGLOBIN 0.3 % (0.5-1.5); BG DEOXYHEMOGLOBIN 5.5 % (0.0-5.0); BG FRACTION INSPIRED OXYGEN 60; BG HCO3 ACT 25.5 mmol/L (22.0-26.0); BG METHEMOGLOBIN 0.3 % (0.0-1.5); BG OXYGEN SATURATION 94.5 % (92.0-98.5); BG OXYHEMOGLOBIN 93.9 % (94.0-97.0); BG PCO2 49.6 mmHg (35.0-45.0); BG PH 7.329 (7.350-7.450); BG PO2 72.2 mmHg (75.0-100.0); BG SAMPLE SITE RIGHT RADIAL; BG TOTAL HEMOGLOBIN 10.1 g/dL (12.0-18.0); BG VENT MODE PRVC
[2020-05-18 10:01] LABS: PLATELET ESTIMATE NORMAL
[2020-05-18] MEDS: CEFEPIME 1,000 MG in DEXTROSE 5% WATER 50 ML IV SCH (12:28)
[2020-05-18] MEDS: MIDAZOLAM HCL 100 MG in DEXT 5% WATER 80 ML IV PRN (12:58)
[2020-05-18] MEDS: FENTANYL CITRATE/PF 2,500 MCG in SODIUM CHLORIDE 0.9% 200 ML IV PRN (16:17)
[2020-05-18] MEDS ORDERED: CALCITRIOL 0.5MCG CAPSULE PO ONE (18:00)
[2020-05-18] MEDS: CALCIUM CARBONATE 1250MG TABLET (500MG ELEMENTAL CALCIUM) PO SCH (18:24)
[2020-05-18] MEDS: CALCITRIOL 0.5MCG CAPSULE PO SCH (20:00)
[2020-05-18] MEDS: ACETAMINOPHEN 325MG TABLET PO PRN (20:54)
[2020-05-19] VITALS (96 sets, daily range): BP systolic 70–201; BP diastolic 38–115
[2020-05-19] MEDS: IPRATROPIUM/ALBUTEROL 0.5-3(2.5)MG/3ML NEB HHN SCH ×6 (00:29→20:48)
[2020-05-19] MEDS: ACETYLCYSTEINE 100MG/ML 10% VIAL 4ML INH SCH ×3 (00:29→16:45)
[2020-05-19] MEDS: NOREPINEPHRINE 32 MG in DEXT 5% WATER 218 ML IV PRN (00:36)
[2020-05-19] MEDS: SODIUM CHLORIDE 0.9% 1,000 ML IV SCH ×3 (00:38→20:13)
[2020-05-19] MEDS: ACETAMINOPHEN 325MG TABLET PO PRN ×2 (01:06→20:59)
[2020-05-19] MEDS: FENTANYL CITRATE/PF 2,500 MCG in SODIUM CHLORIDE 0.9% 200 ML IV PRN ×2 (04:34→22:25)
[2020-05-19] MEDS: MIDAZOLAM HCL 100 MG in DEXT 5% WATER 80 ML IV PRN (04:35)
[2020-05-19 05:42] LABS: HEMATOCRIT. 31.9 % (36.0-48.0); MEAN CORPUSCULAR HEMOGLOBIN 21.8 pg (28.0-32.0); MEAN CORPUSCULAR VOLUME 69.8 fL (81.0-99.0); PLATELET 153 x1000/uL (130-400); RED BLOOD CELL COUNT 4.57 mill/uL (4.2-5.4); RED CELL DISTRIBUTION WIDTH 16.8 % (11.6-14.6)
[2020-05-19 06:02] LABS: CHLORIDE 96 mEq/L (98-107)
[2020-05-19 06:08] LABS: PHOSPHORUS 5.2 mg/dL (2.5-4.9)
[2020-05-19] MEDS: INSULIN LISPRO 100 UNITS/ML SUBCUT SCH ×4 (06:34→21:00)
[2020-05-19] MEDS: BLOOD SUGAR DIAGNOSTIC STRIP TEST SCH ×4 (06:34→21:00)
[2020-05-19] MEDS: ENOXAPARIN 40MG/0.4ML SYR SUBCUT SCH (09:14)
[2020-05-19] MEDS: ASCORBIC ACID 500 MG TABLET PO SCH ×2 (09:15→20:59)
[2020-05-19] MEDS: ZINC SULFATE 220 MG ( 50 ) CAPSULE PO SCH (09:15)
[2020-05-19] MEDS: CALCITRIOL 0.5MCG CAPSULE PO SCH (09:15)
[2020-05-19] MEDS: CALCIUM CARBONATE 1250MG TABLET (500MG ELEMENTAL CALCIUM) PO SCH ×3 (09:15→16:21)
[2020-05-19] MEDS: ERGOCALCIFEROL 50000UNITS CAPSULE PO SCH (09:15)
[2020-05-19] MEDS: FAMOTIDINE 20MG/2ML VIAL IV SCH (09:15)
[2020-05-19 09:28] LABS: BG CARBOXYHEMOGLOBIN 0.3 % (0.5-1.5); BG DEOXYHEMOGLOBIN 2.7 % (0.0-5.0); BG FRACTION INSPIRED OXYGEN 50; BG HCO3 ACT 21.9 mmol/L (22.0-26.0); BG METHEMOGLOBIN 0.3 % (0.0-1.5); BG OXYGEN SATURATION 97.3 % (92.0-98.5); BG OXYHEMOGLOBIN 96.7 % (94.0-97.0); BG PCO2 43.7 mmHg (35.0-45.0); BG PH 7.318 (7.350-7.450); BG SAMPLE SITE RIGHT RADIAL; BG TOTAL HEMOGLOBIN 10.1 g/dL (12.0-18.0); BG TOTAL RESPIRATORY RATE 21 b/min; BG VENT MODE VENT- PRVC
[2020-05-19 10:06] LABS: *CREATININE RANDOM URINE 80.6 mg/dL (Not Estab.); MICROALBUMIN RANDOM URINE 1469.4 ug/mL (Not Estab.)
[2020-05-19 10:19] LABS: PLATELET ESTIMATE NORMAL
[2020-05-19] MEDS ORDERED: BISACODYL 5MG TABLET PO PRN (11:00)
[2020-05-19] MEDS ORDERED: LACTULOSE 20G/30ML UDC PO NR (11:00)
[2020-05-19] MEDS: CEFEPIME 1,000 MG in DEXTROSE 5% WATER 50 ML IV SCH (12:59)
[2020-05-19] MEDS ORDERED: ALBUMIN HUMAN 25GM/100ML (25%) IV NR (15:00)
[2020-05-20] VITALS (93 sets, daily range): BP systolic 92–137; BP diastolic 54–82
[2020-05-20] MEDS: ACETYLCYSTEINE 100MG/ML 10% VIAL 4ML INH SCH ×3 (00:27→16:04)
[2020-05-20] MEDS: IPRATROPIUM/ALBUTEROL 0.5-3(2.5)MG/3ML NEB HHN SCH ×6 (00:27→21:00)
[2020-05-20] MEDS: MIDAZOLAM HCL 100 MG in DEXT 5% WATER 80 ML IV PRN (04:16)
[2020-05-20] MEDS: ACETAMINOPHEN 325MG TABLET PO PRN (05:29)
[2020-05-20 06:31] LABS: BASOPHILS % 0.6 % (0.0-2.0); EOSINOPHILS % 2.6 % (0.0-5.0); HEMATOCRIT. 25.7 % (36.0-48.0); HEMOGLOBIN. 8.2 g/dL (12.0-16.0); LYMPHOCYTES % 8.2 % (20.0-50.0); MEAN CORPUSCULAR HEMOGLOBIN 22.1 pg (28.0-32.0); MEAN CORPUSCULAR VOLUME 69.2 fL (81.0-99.0); MEAN PLATELET VOLUME 10.9 fl (7.4-10.4); MONOCYTES % 7.3 % (2.0-8.0); NEUTROPHILS % 81.3 % (40.0-76.0); PLATELET 139 x1000/uL (130-400); RED BLOOD CELL COUNT 3.72 mill/uL (4.2-5.4); RED CELL DISTRIBUTION WIDTH 17.1 % (11.6-14.6)
[2020-05-20] MEDS: INSULIN LISPRO 100 UNITS/ML SUBCUT SCH ×4 (07:00→21:00)
[2020-05-20] MEDS: BLOOD SUGAR DIAGNOSTIC STRIP TEST SCH ×4 (07:04→21:17)
[2020-05-20] MEDS: ENOXAPARIN 40MG/0.4ML SYR SUBCUT SCH (09:40)
[2020-05-20] MEDS: ZINC SULFATE 220 MG ( 50 ) CAPSULE PO SCH (09:43)
[2020-05-20] MEDS: ASCORBIC ACID 500 MG TABLET PO SCH ×2 (09:43→21:17)
[2020-05-20] MEDS: FAMOTIDINE 20MG/2ML VIAL IV SCH (09:43)
[2020-05-20] MEDS: CALCITRIOL 0.5MCG CAPSULE PO SCH (09:44)
[2020-05-20] MEDS: CALCIUM CARBONATE 1250MG TABLET (500MG ELEMENTAL CALCIUM) PO SCH ×3 (09:44→16:36)
[2020-05-20 11:32] LABS: BG BASE EXCESS -3.5 mmol/L (-2.0-2.0); BG CARBOXYHEMOGLOBIN 0.6 % (0.5-1.5); BG DEOXYHEMOGLOBIN 11.3 % (0.0-5.0); BG FRACTION INSPIRED OXYGEN 50; BG HCO3 ACT 21.8 mmol/L (22.0-26.0); BG METHEMOGLOBIN 0.5 % (0.0-1.5); BG OXYGEN SATURATION 88.6 % (92.0-98.5); BG OXYHEMOGLOBIN 87.6 % (94.0-97.0); BG PH 7.354 (7.350-7.450); BG PO2 56.7 mmHg (75.0-100.0); BG SAMPLE SITE RIGHT RADIAL; BG TOTAL HEMOGLOBIN 10.3 g/dL (12.0-18.0); BG TOTAL RESPIRATORY RATE 27 b/min; BG VENT MODE APRVC
[2020-05-20] MEDS: LACTULOSE 20G/30ML UDC PO SCH (11:54)
[2020-05-20 12:20] LABS: HEMATOCRIT 27.4 % (36.0-48.0); HEMOGLOBIN 8.6 g/dL (12.0-16.0)
[2020-05-20] MEDS: SODIUM CHLORIDE 0.9% 1,000 ML IV SCH (12:54)
[2020-05-20] MEDS: FENTANYL CITRATE/PF 2,500 MCG in SODIUM CHLORIDE 0.9% 200 ML IV PRN (17:47)
[2020-05-21] VITALS (89 sets, daily range): BP systolic 103–157; BP diastolic 56–105
[2020-05-21] MEDS: IPRATROPIUM/ALBUTEROL 0.5-3(2.5)MG/3ML NEB HHN SCH ×4 (00:38→12:34)
[2020-05-21] MEDS: ACETYLCYSTEINE 100MG/ML 10% VIAL 4ML INH SCH ×3 (00:41→16:46)
[2020-05-21] MEDS: SODIUM CHLORIDE 0.9% 1,000 ML IV SCH (05:34)
[2020-05-21 05:54] LABS: BASOPHILS % 0.8 % (0.0-2.0); EOSINOPHILS % 3.8 % (0.0-5.0); HEMATOCRIT. 25.9 % (36.0-48.0); HEMOGLOBIN. 8.2 g/dL (12.0-16.0); LYMPHOCYTES % 8.5 % (20.0-50.0); MEAN CORPUSCULAR VOLUME 69.6 fL (81.0-99.0); MEAN PLATELET VOLUME 10.2 fl (7.4-10.4); MONOCYTES % 6.8 % (2.0-8.0); NEUTROPHILS % 80.1 % (40.0-76.0); PLATELET 172 x1000/uL (130-400); RED BLOOD CELL COUNT 3.72 mill/uL (4.2-5.4); RED CELL DISTRIBUTION WIDTH 17.4 % (11.6-14.6)
[2020-05-21 06:12] LABS: PHOSPHORUS 4.6 mg/dL (2.5-4.9)
[2020-05-21] MEDS: INSULIN LISPRO 100 UNITS/ML SUBCUT SCH ×4 (06:26→20:54)
[2020-05-21] MEDS: BLOOD SUGAR DIAGNOSTIC STRIP TEST SCH ×4 (06:26→20:55)
[2020-05-21] MEDS ORDERED: SODIUM POLYSTYRENE SULFONATE 15 G/60 ML BOT NG NR (08:00)
[2020-05-21 09:13] LABS: BG BASE EXCESS -2.2 mmol/L (-2.0-2.0); BG CARBOXYHEMOGLOBIN 0.3 % (0.5-1.5); BG DEOXYHEMOGLOBIN 9.9 % (0.0-5.0); BG FRACTION INSPIRED OXYGEN 50; BG HCO3 ACT 23.6 mmol/L (22.0-26.0); BG METHEMOGLOBIN 0.3 % (0.0-1.5); BG OXYHEMOGLOBIN 89.5 % (94.0-97.0); BG PCO2 44.9 mmHg (35.0-45.0); BG PH 7.339 (7.350-7.450); BG PO2 59.9 mmHg (75.0-100.0); BG SAMPLE SITE RIGHT RADIAL; BG TOTAL HEMOGLOBIN 9.8 g/dL (12.0-18.0); BG VENT MODE VENT - PRVC
[2020-05-21] MEDS: LACTULOSE 20G/30ML UDC PO SCH (09:34)
[2020-05-21] MEDS: CALCIUM CARBONATE 1250MG TABLET (500MG ELEMENTAL CALCIUM) PO SCH ×3 (09:34→17:51)
[2020-05-21] MEDS: FAMOTIDINE 20MG/2ML VIAL IV SCH (09:35)
[2020-05-21] MEDS: ZINC SULFATE 220 MG ( 50 ) CAPSULE PO SCH (09:35)
[2020-05-21] MEDS: ASCORBIC ACID 500 MG TABLET PO SCH ×2 (09:35→20:42)
[2020-05-21] MEDS: CALCITRIOL 0.5MCG CAPSULE PO SCH (09:35)
[2020-05-21] MEDS: MIDAZOLAM HCL 100 MG in DEXT 5% WATER 80 ML IV PRN (11:41)
[2020-05-21] MEDS: FENTANYL CITRATE/PF 2,500 MCG in SODIUM CHLORIDE 0.9% 200 ML IV PRN (15:09)
[2020-05-22] VITALS (97 sets, daily range): BP systolic 82–150; BP diastolic 44–99
[2020-05-22] MEDS: IPRATROPIUM/ALBUTEROL 0.5-3(2.5)MG/3ML NEB HHN SCH ×6 (01:25→20:49)
[2020-05-22 05:44] LABS: HEMATOCRIT. 27.4 % (36.0-48.0); HEMOGLOBIN. 8.8 g/dL (12.0-16.0); MEAN CORPUSCULAR HEMOGLOBIN 22.2 pg (28.0-32.0); MEAN CORPUSCULAR VOLUME 69.2 fL (81.0-99.0); MEAN PLATELET VOLUME 9.7 fl (7.4-10.4); PLATELET 204 x1000/uL (130-400); RED BLOOD CELL COUNT 3.95 mill/uL (4.2-5.4); RED CELL DISTRIBUTION WIDTH 17.2 % (11.6-14.6)
[2020-05-22 05:55] LABS: PHOSPHORUS 3.8 mg/dL (2.5-4.9)
[2020-05-22] MEDS: BLOOD SUGAR DIAGNOSTIC STRIP TEST SCH ×4 (06:04→21:36)
[2020-05-22] MEDS: INSULIN LISPRO 100 UNITS/ML SUBCUT SCH ×4 (06:04→21:00)
[2020-05-22 08:03] LABS: PLATELET ESTIMATE NORMAL
[2020-05-22] MEDS: CALCIUM CARBONATE 1250MG TABLET (500MG ELEMENTAL CALCIUM) PO SCH ×3 (09:30→17:28)
[2020-05-22] MEDS: CALCITRIOL 0.5MCG CAPSULE PO SCH (09:30)
[2020-05-22] MEDS: ASCORBIC ACID 500 MG TABLET PO SCH ×2 (09:30→21:28)
[2020-05-22] MEDS: ZINC SULFATE 220 MG ( 50 ) CAPSULE PO SCH (09:30)
[2020-05-22] MEDS: DOCUSATE SODIUM 100MG CAPSULE PO PRN (09:30)
[2020-05-22] MEDS: LACTULOSE 20G/30ML UDC PO SCH (09:30)
[2020-05-22] MEDS: FAMOTIDINE 20MG/2ML VIAL IV SCH (09:31)
[2020-05-22] MEDS: FENTANYL CITRATE/PF 2,500 MCG in SODIUM CHLORIDE 0.9% 200 ML IV PRN (11:04)
[2020-05-22] MEDS: FERROUS SULFATE 325MG TABLET PO SCH ×2 (12:12→17:28)
[2020-05-22] MEDS: MIDAZOLAM HCL 100 MG in DEXT 5% WATER 80 ML IV PRN (15:07)
[2020-05-22 17:26] LABS: CLARITY URINE TURBID (CLEAR); COLOR URINE YELLOW (YELLOW); KETONES URINE NEGATIVE (NEGATIVE); LEUKOCYTE ESTERASE URINE 3+ (NEGATIVE); NITRITE URINE NEGATIVE (NEGATIVE); OCCULT BLOOD URINE 3+ (NEGATIVE); PH URINE 5.5 (4.5-8.0); PROTEIN URINE 2+ (NEGATIVE); SPECIFIC GRAVITY URINE 1.015 (1.005-1.030)
[2020-05-22] MEDS: ACETAMINOPHEN 325MG TABLET PO PRN (21:28)
[2020-05-23] VITALS (93 sets, daily range): BP systolic 91–160; BP diastolic 51–88
[2020-05-23] MEDS: IPRATROPIUM/ALBUTEROL 0.5-3(2.5)MG/3ML NEB HHN SCH ×6 (00:42→20:20)
[2020-05-23 06:09] LABS: HEMATOCRIT. 26.6 % (36.0-48.0); HEMOGLOBIN. 8.5 g/dL (12.0-16.0); MEAN CORPUSCULAR HEMOGLOBIN 22.2 pg (28.0-32.0); MEAN CORPUSCULAR VOLUME 68.9 fL (81.0-99.0); MEAN PLATELET VOLUME 8.9 fl (7.4-10.4); PLATELET 232 x1000/uL (130-400); RED BLOOD CELL COUNT 3.86 mill/uL (4.2-5.4); RED CELL DISTRIBUTION WIDTH 17.6 % (11.6-14.6)
[2020-05-23 06:27] LABS: PHOSPHORUS 3.8 mg/dL (2.5-4.9)
[2020-05-23] MEDS: BLOOD SUGAR DIAGNOSTIC STRIP TEST SCH ×4 (06:38→21:36)
[2020-05-23] MEDS: FERROUS SULFATE 325MG TABLET PO SCH ×3 (06:39→17:47)
[2020-05-23] MEDS: INSULIN LISPRO 100 UNITS/ML SUBCUT SCH ×4 (06:51→21:00)
[2020-05-23] MEDS: FENTANYL CITRATE/PF 2,500 MCG in SODIUM CHLORIDE 0.9% 200 ML IV PRN (07:06)
[2020-05-23 07:38] LABS: PLATELET ESTIMATE NORMAL
[2020-05-23 09:02] LABS: BG BASE EXCESS 2.9 mmol/L (-2.0-2.0); BG CARBOXYHEMOGLOBIN 0.1 % (0.5-1.5); BG DEOXYHEMOGLOBIN 7.6 % (0.0-5.0); BG FRACTION INSPIRED OXYGEN 50; BG HCO3 ACT 28.5 mmol/L (22.0-26.0); BG METHEMOGLOBIN 0.4 % (0.0-1.5); BG OXYGEN SATURATION 92.4 % (92.0-98.5); BG OXYHEMOGLOBIN 91.9 % (94.0-97.0); BG PCO2 49.7 mmHg (35.0-45.0); BG PH 7.377 (7.350-7.450); BG PO2 65.5 mmHg (75.0-100.0); BG SAMPLE SITE RIGHT RADIAL; BG TOTAL HEMOGLOBIN 9.1 g/dL (12.0-18.0); BG VENT MODE PRVC
[2020-05-23] MEDS: ZINC SULFATE 220 MG ( 50 ) CAPSULE PO SCH (09:12)
[2020-05-23] MEDS: FAMOTIDINE 20MG/2ML VIAL IV SCH (09:12)
[2020-05-23] MEDS: CALCITRIOL 0.5MCG CAPSULE PO SCH (09:12)
[2020-05-23] MEDS: CALCIUM CARBONATE 1250MG TABLET (500MG ELEMENTAL CALCIUM) PO SCH ×3 (09:12→17:47)
[2020-05-23] MEDS: ASCORBIC ACID 500 MG TABLET PO SCH ×2 (09:12→22:06)
[2020-05-23] MEDS: LACTULOSE 20G/30ML UDC PO SCH (09:13)
[2020-05-23] MEDS: MIDAZOLAM HCL 100 MG in DEXT 5% WATER 80 ML IV PRN (14:44)
[2020-05-24] VITALS (81 sets, daily range): BP systolic 92–153; BP diastolic 54–94
[2020-05-24] MEDS: IPRATROPIUM/ALBUTEROL 0.5-3(2.5)MG/3ML NEB HHN SCH ×6 (00:15→20:43)
[2020-05-24] MEDS: FENTANYL CITRATE/PF 2,500 MCG in SODIUM CHLORIDE 0.9% 200 ML IV PRN ×2 (00:30→15:03)
[2020-05-24 05:40] LABS: CHLORIDE 105 mEq/L (98-107)
[2020-05-24 05:45] LABS: HEMATOCRIT. 24.3 % (36.0-48.0); HEMOGLOBIN. 7.8 g/dL (12.0-16.0); MEAN CORPUSCULAR HEMOGLOBIN 22.3 pg (28.0-32.0); MEAN CORPUSCULAR VOLUME 69.7 fL (81.0-99.0); PLATELET 239 x1000/uL (130-400); RED BLOOD CELL COUNT 3.48 mill/uL (4.2-5.4); RED CELL DISTRIBUTION WIDTH 17.4 % (11.6-14.6)
[2020-05-24] MEDS: INSULIN LISPRO 100 UNITS/ML SUBCUT SCH ×4 (06:48→21:00)
[2020-05-24] MEDS: FERROUS SULFATE 325MG TABLET PO SCH ×3 (06:48→16:57)
[2020-05-24] MEDS: BLOOD SUGAR DIAGNOSTIC STRIP TEST SCH ×4 (06:48→21:00)
[2020-05-24] MEDS: ZINC SULFATE 220 MG ( 50 ) CAPSULE PO SCH (08:33)
[2020-05-24] MEDS: CALCITRIOL 0.5MCG CAPSULE PO SCH (08:33)
[2020-05-24] MEDS: CALCIUM CARBONATE 1250MG TABLET (500MG ELEMENTAL CALCIUM) PO SCH ×3 (08:33→16:57)
[2020-05-24] MEDS: FAMOTIDINE 20MG/2ML VIAL IV SCH (08:33)
[2020-05-24] MEDS: LACTULOSE 20G/30ML UDC PO SCH ×2 (08:34→21:00)
[2020-05-24] MEDS: ASCORBIC ACID 500 MG TABLET PO SCH ×2 (08:35→22:41)
[2020-05-24 10:23] LABS: BG BASE EXCESS 3.4 mmol/L (-2.0-2.0); BG CARBOXYHEMOGLOBIN 0.6 % (0.5-1.5); BG DEOXYHEMOGLOBIN 9.3 % (0.0-5.0); BG FRACTION INSPIRED OXYGEN 50; BG HCO3 ACT 29.1 mmol/L (22.0-26.0); BG METHEMOGLOBIN 1.6 % (0.0-1.5); BG OXYGEN SATURATION 90.5 % (92.0-98.5); BG OXYHEMOGLOBIN 88.5 % (94.0-97.0); BG PCO2 50.6 mmHg (35.0-45.0); BG PH 7.377 (7.350-7.450); BG PO2 58.6 mmHg (75.0-100.0); BG SAMPLE SITE LEFT RADIAL; BG TOTAL HEMOGLOBIN 8.4 g/dL (12.0-18.0); BG TOTAL RESPIRATORY RATE 22 b/min; BG VENT MODE VENT- PRVC
[2020-05-24 11:00] LABS: PLATELET ESTIMATE NORMAL
[2020-05-24] MEDS ORDERED: CEFTRIAXONE 1 G PREMIX 50 ML IV SCH (11:30)
[2020-05-24] MEDS ORDERED: MAGNESIUM CITRATE 300ML SOLUTION NG NR (11:45)
[2020-05-24] MEDS: CEFTRIAXONE 1,000 MG in DEXTROSE 5% WATER 50 ML IV SCH (12:30)
[2020-05-24] MEDS: MIDAZOLAM HCL 100 MG in DEXT 5% WATER 80 ML IV PRN (22:03)
[2020-05-24] MEDS: ACETAMINOPHEN 325MG TABLET PO PRN (22:52)
[2020-05-25] VITALS (52 sets, daily range): BP systolic 94–185; BP diastolic 58–117
[2020-05-25] MEDS: IPRATROPIUM/ALBUTEROL 0.5-3(2.5)MG/3ML NEB HHN SCH ×6 (00:41→20:55)
[2020-05-25] MEDS: MIDAZOLAM HCL 100 MG in DEXT 5% WATER 80 ML IV PRN (02:25)
[2020-05-25 06:00] LABS: HEMATOCRIT. 26.3 % (36.0-48.0); HEMOGLOBIN. 8.4 g/dL (12.0-16.0); MEAN CORPUSCULAR HEMOGLOBIN 22.4 pg (28.0-32.0); MEAN CORPUSCULAR VOLUME 69.8 fL (81.0-99.0); PLATELET 268 x1000/uL (130-400); RED BLOOD CELL COUNT 3.77 mill/uL (4.2-5.4)
[2020-05-25 06:03] LABS: CHLORIDE 104 mEq/L (98-107)
[2020-05-25 06:06] LABS: PHOSPHORUS 4.4 mg/dL (2.5-4.9)
[2020-05-25] MEDS: BLOOD SUGAR DIAGNOSTIC STRIP TEST SCH ×4 (06:27→20:03)
[2020-05-25] MEDS: INSULIN LISPRO 100 UNITS/ML SUBCUT SCH ×4 (06:28→20:40)
[2020-05-25] MEDS: FERROUS SULFATE 325MG TABLET PO SCH ×3 (07:10→17:07)
[2020-05-25] MEDS: FENTANYL CITRATE/PF 2,500 MCG in SODIUM CHLORIDE 0.9% 200 ML IV PRN (07:30)
[2020-05-25] MEDS: CALCITRIOL 0.5MCG CAPSULE PO SCH (08:18)
[2020-05-25] MEDS: LACTULOSE 20G/30ML UDC PO SCH ×3 (08:18→17:19)
[2020-05-25] MEDS: CALCIUM CARBONATE 1250MG TABLET (500MG ELEMENTAL CALCIUM) PO SCH ×3 (08:18→17:07)
[2020-05-25] MEDS: FAMOTIDINE 20MG/2ML VIAL IV SCH (08:18)
[2020-05-25] MEDS: ZINC SULFATE 220 MG ( 50 ) CAPSULE PO SCH (08:18)
[2020-05-25] MEDS: ASCORBIC ACID 500 MG TABLET PO SCH ×2 (08:19→20:40)
[2020-05-25 09:01] LABS: BG BASE EXCESS 3.4 mmol/L (-2.0-2.0); BG CARBOXYHEMOGLOBIN 0.7 % (0.5-1.5); BG DEOXYHEMOGLOBIN 3.1 % (0.0-5.0); BG METHEMOGLOBIN 0.4 % (0.0-1.5); BG OXYGEN SATURATION 96.9 % (92.0-98.5); BG OXYHEMOGLOBIN 95.8 % (94.0-97.0); BG PCO2 42.6 mmHg (35.0-45.0); BG PH 7.435 (7.350-7.450); BG PO2 86.4 mmHg (75.0-100.0); BG SAMPLE SITE RIGHT RADIAL; BG TOTAL HEMOGLOBIN 8.2 g/dL (12.0-18.0); BG VENT MODE VENT - APRV
[2020-05-25 10:36] LABS: PLATELET ESTIMATE NORMAL
[2020-05-25] MEDS: LABETALOL 5MG/ML SYR 20 MG/4 ML SYRINGE IV PRN (10:40)
[2020-05-25] MEDS: BISACODYL 5MG TABLET PO SCH (10:41)
[2020-05-25] MEDS ORDERED: MINERAL OIL ENEMA 133ML PR SCH (11:00)
[2020-05-25] MEDS: CEFTRIAXONE 1,000 MG in DEXTROSE 5% WATER 50 ML IV SCH (11:49)
[2020-05-25] MEDS: METOCLOPRAMIDE HCL 10MG/2ML VIAL IV SCH ×3 (11:49→23:49)
[2020-05-25] MEDS ORDERED: SODIUM POLYSTYRENE SULFONATE 15 G/60 ML BOT NG SCH (15:00)
[2020-05-26] VITALS (26 sets, daily range): BP systolic 104–128; BP diastolic 61–80
[2020-05-26] MEDS: IPRATROPIUM/ALBUTEROL 0.5-3(2.5)MG/3ML NEB HHN SCH ×5 (00:50→21:22)
[2020-05-26] MEDS: MIDAZOLAM HCL 100 MG in DEXT 5% WATER 80 ML IV PRN ×2 (00:56→22:32)
[2020-05-26] MEDS: FENTANYL CITRATE/PF 2,500 MCG in SODIUM CHLORIDE 0.9% 200 ML IV PRN ×2 (00:58→19:09)
[2020-05-26] MEDS: LACTULOSE 20G/30ML UDC PO SCH ×3 (01:45→16:42)
[2020-05-26] MEDS: METOCLOPRAMIDE HCL 10MG/2ML VIAL IV SCH ×3 (05:14→16:42)
[2020-05-26 05:41] LABS: HEMATOCRIT. 25.2 % (36.0-48.0); HEMOGLOBIN. 8.1 g/dL (12.0-16.0); MEAN CORPUSCULAR HEMOGLOBIN 22.4 pg (28.0-32.0); MEAN CORPUSCULAR VOLUME 69.5 fL (81.0-99.0); MEAN PLATELET VOLUME 8.8 fl (7.4-10.4); PLATELET 293 x1000/uL (130-400); RED BLOOD CELL COUNT 3.62 mill/uL (4.2-5.4); RED CELL DISTRIBUTION WIDTH 17.2 % (11.6-14.6)
[2020-05-26 06:00] LABS: CHLORIDE 105 mEq/L (98-107)
[2020-05-26 06:08] LABS: PHOSPHORUS 5.5 mg/dL (2.5-4.9)
[2020-05-26] MEDS: INSULIN LISPRO 100 UNITS/ML SUBCUT SCH ×4 (06:28→21:00)
[2020-05-26] MEDS: BLOOD SUGAR DIAGNOSTIC STRIP TEST SCH ×4 (06:28→21:32)
[2020-05-26 07:34] LABS: PLATELET ESTIMATE NORMAL
[2020-05-26] MEDS: FERROUS SULFATE 325MG TABLET PO SCH ×3 (07:54→16:42)
[2020-05-26] MEDS: ASCORBIC ACID 500 MG TABLET PO SCH ×2 (08:43→21:32)
[2020-05-26] MEDS: FAMOTIDINE 20MG/2ML VIAL IV SCH (08:43)
[2020-05-26] MEDS: CALCITRIOL 0.5MCG CAPSULE PO SCH (08:44)
[2020-05-26] MEDS: BISACODYL 5MG TABLET PO SCH (08:44)
[2020-05-26] MEDS: CALCIUM CARBONATE 1250MG TABLET (500MG ELEMENTAL CALCIUM) PO SCH ×3 (08:44→16:42)
[2020-05-26] MEDS: ERGOCALCIFEROL 50000UNITS CAPSULE PO SCH (08:44)
[2020-05-26] MEDS: ZINC SULFATE 220 MG ( 50 ) CAPSULE PO SCH (08:44)
[2020-05-26 09:39] LABS: BG BASE EXCESS 4.8 mmol/L (-2.0-2.0); BG CARBOXYHEMOGLOBIN 0.3 % (0.5-1.5); BG DEOXYHEMOGLOBIN 10.2 % (0.0-5.0); BG FRACTION INSPIRED OXYGEN 45; BG HCO3 ACT 29.9 mmol/L (22.0-26.0); BG METHEMOGLOBIN 0.3 % (0.0-1.5); BG OXYGEN SATURATION 89.7 % (92.0-98.5); BG OXYHEMOGLOBIN 89.2 % (94.0-97.0); BG PCO2 47.2 mmHg (35.0-45.0); BG PH 7.419 (7.350-7.450); BG PO2 58.4 mmHg (75.0-100.0); BG SAMPLE SITE RIGHT RADIAL; BG TOTAL HEMOGLOBIN 8.3 g/dL (12.0-18.0); BG VENT MODE PRVC
[2020-05-26] MEDS: CEFTRIAXONE 1,000 MG in DEXTROSE 5% WATER 50 ML IV SCH (12:45)
[2020-05-27] VITALS (23 sets, daily range): BP systolic 91–143; BP diastolic 51–70
[2020-05-27] MEDS: METOCLOPRAMIDE HCL 10MG/2ML VIAL IV SCH ×4 (00:05→17:03)
[2020-05-27] MEDS: IPRATROPIUM/ALBUTEROL 0.5-3(2.5)MG/3ML NEB HHN SCH ×6 (01:00→17:05)
[2020-05-27] MEDS: LACTULOSE 20G/30ML UDC PO SCH ×3 (05:11→17:02)
[2020-05-27] MEDS: BLOOD SUGAR DIAGNOSTIC STRIP TEST SCH ×4 (05:24→21:22)
[2020-05-27] MEDS: FERROUS SULFATE 325MG TABLET PO SCH ×3 (05:25→17:02)
[2020-05-27 05:56] LABS: HEMOGLOBIN. 7.4 g/dL (12.0-16.0); MEAN CORPUSCULAR HEMOGLOBIN 21.6 pg (28.0-32.0); MEAN CORPUSCULAR VOLUME 70.1 fL (81.0-99.0); MEAN PLATELET VOLUME 8.8 fl (7.4-10.4); PLATELET 285 x1000/uL (130-400); RED BLOOD CELL COUNT 3.42 mill/uL (4.2-5.4)
[2020-05-27] MEDS: INSULIN LISPRO 100 UNITS/ML SUBCUT SCH ×4 (06:02→21:00)
[2020-05-27 06:11] LABS: CHLORIDE 105 mEq/L (98-107)
[2020-05-27 06:16] LABS: PHOSPHORUS 4.9 mg/dL (2.5-4.9)
[2020-05-27 08:10] LABS: BG BASE EXCESS 4.9 mmol/L (-2.0-2.0); BG CARBOXYHEMOGLOBIN 0.5 % (0.5-1.5); BG DEOXYHEMOGLOBIN 3.9 % (0.0-5.0); BG HCO3 ACT 29.8 mmol/L (22.0-26.0); BG METHEMOGLOBIN 0.9 % (0.0-1.5); BG OXYHEMOGLOBIN 94.7 % (94.0-97.0); BG PCO2 46.3 mmHg (35.0-45.0); BG PH 7.426 (7.350-7.450); BG SAMPLE SITE RIGHT RADIAL; BG TOTAL HEMOGLOBIN 7.1 g/dL (12.0-18.0); BG VENT MODE VENT - APRV
[2020-05-27 09:11] LABS: ATYPICAL LYMPHOCYTES 1; PLATELET ESTIMATE NORMAL
[2020-05-27] MEDS: DOCUSATE SODIUM 100MG CAPSULE PO PRN (09:21)
[2020-05-27] MEDS: CALCITRIOL 0.5MCG CAPSULE PO SCH (09:21)
[2020-05-27] MEDS: FAMOTIDINE 20MG/2ML VIAL IV SCH (09:21)
[2020-05-27] MEDS: ASCORBIC ACID 500 MG TABLET PO SCH ×2 (09:21→21:34)
[2020-05-27] MEDS: CALCIUM CARBONATE 1250MG TABLET (500MG ELEMENTAL CALCIUM) PO SCH ×3 (09:21→17:02)
[2020-05-27] MEDS: BISACODYL 5MG TABLET PO SCH (09:21)
[2020-05-27] MEDS: ZINC SULFATE 220 MG ( 50 ) CAPSULE PO SCH (09:21)
[2020-05-27] MEDS ORDERED: BISACODYL 10MG SUPP PR PRN (09:45)
[2020-05-27] MEDS: MIDAZOLAM HCL 100 MG in DEXT 5% WATER 80 ML IV PRN (15:50)
[2020-05-27] MEDS: FENTANYL CITRATE/PF 2,500 MCG in SODIUM CHLORIDE 0.9% 200 ML IV PRN (15:51)
[2020-05-28] VITALS (73 sets, daily range): BP systolic 87–169; BP diastolic 46–121
[2020-05-28] MEDS: METOCLOPRAMIDE HCL 10MG/2ML VIAL IV SCH ×4 (00:08→17:23)
[2020-05-28] MEDS: IPRATROPIUM/ALBUTEROL 0.5-3(2.5)MG/3ML NEB HHN SCH ×6 (00:40→20:31)
[2020-05-28] MEDS: LACTULOSE 20G/30ML UDC PO SCH ×3 (03:01→17:23)
[2020-05-28] MEDS: FERROUS SULFATE 325MG TABLET PO SCH ×3 (05:08→17:23)
[2020-05-28 06:12] LABS: CHLORIDE 104 mEq/L (98-107)
[2020-05-28] MEDS: BLOOD SUGAR DIAGNOSTIC STRIP TEST SCH ×4 (06:27→23:36)
[2020-05-28] MEDS: INSULIN LISPRO 100 UNITS/ML SUBCUT SCH ×4 (06:28→23:48)
[2020-05-28] MEDS: CALCITRIOL 0.5MCG CAPSULE PO SCH (08:55)
[2020-05-28] MEDS: FAMOTIDINE 20MG/2ML VIAL IV SCH (08:55)
[2020-05-28] MEDS: ZINC SULFATE 220 MG ( 50 ) CAPSULE PO SCH (08:55)
[2020-05-28] MEDS: CALCIUM CARBONATE 1250MG TABLET (500MG ELEMENTAL CALCIUM) PO SCH ×3 (08:55→17:23)
[2020-05-28] MEDS: ASCORBIC ACID 500 MG TABLET PO SCH ×2 (08:55→21:12)
[2020-05-28] MEDS: MIDAZOLAM HCL 100 MG in DEXT 5% WATER 80 ML IV PRN (08:58)
[2020-05-28 09:26] LABS: BG BASE EXCESS 5.2 mmol/L (-2.0-2.0); BG CARBOXYHEMOGLOBIN 0.3 % (0.5-1.5); BG DEOXYHEMOGLOBIN 9.8 % (0.0-5.0); BG FRACTION INSPIRED OXYGEN 60; BG HCO3 ACT 30.2 mmol/L (22.0-26.0); BG METHEMOGLOBIN 0.3 % (0.0-1.5); BG OXYGEN SATURATION 90.1 % (92.0-98.5); BG OXYHEMOGLOBIN 89.6 % (94.0-97.0); BG PCO2 47.3 mmHg (35.0-45.0); BG PH 7.423 (7.350-7.450); BG PO2 59.3 mmHg (75.0-100.0); BG SAMPLE SITE LEFT RADIAL; BG TOTAL HEMOGLOBIN 7.8 g/dL (12.0-18.0); BG VENT MODE VENT - PRVC
[2020-05-28 09:54] LABS: BASOPHILS % 0.5 % (0.0-2.0); EOSINOPHILS % 4.1 % (0.0-5.0); HEMATOCRIT. 24.2 % (36.0-48.0); HEMOGLOBIN. 7.3 g/dL (12.0-16.0); LYMPHOCYTES % 11.5 % (20.0-50.0); MEAN CORPUSCULAR HEMOGLOBIN 21.5 pg (28.0-32.0); MEAN CORPUSCULAR VOLUME 70.8 fL (81.0-99.0); MEAN PLATELET VOLUME 8.7 fl (7.4-10.4); MONOCYTES % 7.9 % (2.0-8.0); PLATELET 303 x1000/uL (130-400); RED BLOOD CELL COUNT 3.41 mill/uL (4.2-5.4); RED CELL DISTRIBUTION WIDTH 17.5 % (11.6-14.6)
[2020-05-28] MEDS ORDERED: SORBITOL 70% SOLN 30ML NG NR (14:30)
[2020-05-28] MEDS: FENTANYL CITRATE/PF 2,500 MCG in SODIUM CHLORIDE 0.9% 200 ML IV PRN (14:58)
[2020-05-29] VITALS (94 sets, daily range): BP systolic 66–158; BP diastolic 38–138
[2020-05-29] MEDS: METOCLOPRAMIDE HCL 10MG/2ML VIAL IV SCH ×4 (00:05→18:27)
[2020-05-29] MEDS: IPRATROPIUM/ALBUTEROL 0.5-3(2.5)MG/3ML NEB HHN SCH ×6 (00:39→20:50)
[2020-05-29] MEDS: LACTULOSE 20G/30ML UDC PO SCH ×3 (01:45→18:27)
[2020-05-29] MEDS: MIDAZOLAM HCL 100 MG in DEXT 5% WATER 80 ML IV PRN ×2 (02:00→13:23)
[2020-05-29] MEDS: FENTANYL CITRATE/PF 2,500 MCG in SODIUM CHLORIDE 0.9% 200 ML IV PRN ×2 (03:46→18:28)
[2020-05-29] MEDS: NOREPINEPHRINE 32 MG in DEXT 5% WATER 218 ML IV PRN (03:47)
[2020-05-29 05:45] LABS: BASOPHILS % 0.5 % (0.0-2.0); EOSINOPHILS % 4.9 % (0.0-5.0); HEMATOCRIT. 24.6 % (36.0-48.0); HEMOGLOBIN. 7.6 g/dL (12.0-16.0); LYMPHOCYTES % 12.2 % (20.0-50.0); MEAN CORPUSCULAR HEMOGLOBIN 21.8 pg (28.0-32.0); MEAN CORPUSCULAR VOLUME 70.5 fL (81.0-99.0); MEAN PLATELET VOLUME 8.4 fl (7.4-10.4); MONOCYTES % 7.1 % (2.0-8.0); NEUTROPHILS % 75.3 % (40.0-76.0); PLATELET 311 x1000/uL (130-400); RED BLOOD CELL COUNT 3.49 mill/uL (4.2-5.4); RED CELL DISTRIBUTION WIDTH 17.3 % (11.6-14.6)
[2020-05-29 05:56] LABS: CHLORIDE 106 mEq/L (98-107)
[2020-05-29] MEDS: INSULIN LISPRO 100 UNITS/ML SUBCUT SCH ×3 (06:00→18:00)
[2020-05-29 06:01] LABS: PHOSPHORUS 4.8 mg/dL (2.5-4.9)
[2020-05-29] MEDS: BLOOD SUGAR DIAGNOSTIC STRIP TEST SCH ×3 (06:15→18:01)
[2020-05-29] MEDS: FERROUS SULFATE 325MG TABLET PO SCH ×3 (06:24→18:27)
[2020-05-29] MEDS: CALCIUM CARBONATE 1250MG TABLET (500MG ELEMENTAL CALCIUM) PO SCH ×3 (08:51→18:27)
[2020-05-29] MEDS: CALCITRIOL 0.5MCG CAPSULE PO SCH (08:51)
[2020-05-29] MEDS: ASCORBIC ACID 500 MG TABLET PO SCH ×2 (08:51→20:52)
[2020-05-29] MEDS: ZINC SULFATE 220 MG ( 50 ) CAPSULE PO SCH (08:51)
[2020-05-29] MEDS: FAMOTIDINE 20MG/2ML VIAL IV SCH (08:51)
[2020-05-29] MEDS: ACETAMINOPHEN 325MG TABLET PO PRN (09:05)
[2020-05-29 09:19] LABS: BG BASE EXCESS 5.2 mmol/L (-2.0-2.0); BG CARBOXYHEMOGLOBIN 0.8 % (0.5-1.5); BG DEOXYHEMOGLOBIN 6.6 % (0.0-5.0); BG FRACTION INSPIRED OXYGEN 60; BG HCO3 ACT 30.5 mmol/L (22.0-26.0); BG METHEMOGLOBIN 0.5 % (0.0-1.5); BG OXYGEN SATURATION 93.3 % (92.0-98.5); BG OXYHEMOGLOBIN 92.1 % (94.0-97.0); BG PCO2 49.5 mmHg (35.0-45.0); BG PH 7.408 (7.350-7.450); BG PO2 67.6 mmHg (75.0-100.0); BG SAMPLE SITE LEFT RADIAL; BG TOTAL HEMOGLOBIN 8.2 g/dL (12.0-18.0); BG VENT MODE VENT - PRVC
[2020-05-30] VITALS (90 sets, daily range): BP systolic 81–161; BP diastolic 35–111
[2020-05-30] MEDS: ACETAMINOPHEN 325MG TABLET PO PRN ×2 (00:18→17:52)
[2020-05-30] MEDS: BLOOD SUGAR DIAGNOSTIC STRIP TEST SCH ×4 (00:19→17:39)
[2020-05-30] MEDS: METOCLOPRAMIDE HCL 10MG/2ML VIAL IV SCH ×4 (00:19→17:52)
[2020-05-30] MEDS: MIDAZOLAM HCL 100 MG in DEXT 5% WATER 80 ML IV PRN ×2 (01:11→13:26)
[2020-05-30] MEDS: LACTULOSE 20G/30ML UDC PO SCH ×3 (01:55→17:51)
[2020-05-30] MEDS: IPRATROPIUM/ALBUTEROL 0.5-3(2.5)MG/3ML NEB HHN SCH ×6 (04:45→21:43)
[2020-05-30] MEDS: FENTANYL CITRATE/PF 2,500 MCG in SODIUM CHLORIDE 0.9% 200 ML IV PRN ×2 (05:05→17:58)
[2020-05-30 05:33] LABS: BASOPHILS % 0.6 % (0.0-2.0); EOSINOPHILS % 4.1 % (0.0-5.0); HEMATOCRIT. 25.3 % (36.0-48.0); HEMOGLOBIN. 7.8 g/dL (12.0-16.0); LYMPHOCYTES % 9.3 % (20.0-50.0); MEAN CORPUSCULAR HEMOGLOBIN 21.8 pg (28.0-32.0); MEAN CORPUSCULAR VOLUME 70.8 fL (81.0-99.0); MEAN PLATELET VOLUME 9.2 fl (7.4-10.4); MONOCYTES % 7.3 % (2.0-8.0); NEUTROPHILS % 78.7 % (40.0-76.0); PLATELET 173 x1000/uL (130-400); RED BLOOD CELL COUNT 3.58 mill/uL (4.2-5.4); RED CELL DISTRIBUTION WIDTH 16.8 % (11.6-14.6)
[2020-05-30 05:48] LABS: CHLORIDE 105 mEq/L (98-107)
[2020-05-30] MEDS: INSULIN LISPRO 100 UNITS/ML SUBCUT SCH ×4 (06:00→17:39)
[2020-05-30] MEDS: FERROUS SULFATE 325MG TABLET PO SCH ×3 (06:16→17:52)
[2020-05-30 08:48] LABS: BG BASE EXCESS 4.6 mmol/L (-2.0-2.0); BG CARBOXYHEMOGLOBIN 0.1 % (0.5-1.5); BG DEOXYHEMOGLOBIN 8.1 % (0.0-5.0); BG HCO3 ACT 30.1 mmol/L (22.0-26.0); BG METHEMOGLOBIN 0.4 % (0.0-1.5); BG OXYGEN SATURATION 91.9 % (92.0-98.5); BG OXYHEMOGLOBIN 91.4 % (94.0-97.0); BG PCO2 50.3 mmHg (35.0-45.0); BG PH 7.395 (7.350-7.450); BG PO2 64.2 mmHg (75.0-100.0); BG SAMPLE SITE RIGHT RADIAL; BG TOTAL HEMOGLOBIN 8.1 g/dL (12.0-18.0); BG VENT MODE VENT - APRV
[2020-05-30] MEDS: FAMOTIDINE 20MG/2ML VIAL IV SCH (09:51)
[2020-05-30] MEDS: ZINC SULFATE 220 MG ( 50 ) CAPSULE PO SCH (09:51)
[2020-05-30] MEDS: CALCIUM CARBONATE 1250MG TABLET (500MG ELEMENTAL CALCIUM) PO SCH ×3 (09:51→17:52)
[2020-05-30] MEDS: CALCITRIOL 0.5MCG CAPSULE PO SCH (09:51)
[2020-05-30] MEDS: ASCORBIC ACID 500 MG TABLET PO SCH ×2 (09:51→21:57)
[2020-05-31] VITALS (88 sets, daily range): BP systolic 91–151; BP diastolic 47–88
[2020-05-31] MEDS: BLOOD SUGAR DIAGNOSTIC STRIP TEST SCH ×4 (00:04→18:09)
[2020-05-31] MEDS: METOCLOPRAMIDE HCL 10MG/2ML VIAL IV SCH ×4 (00:04→17:02)
[2020-05-31] MEDS: IPRATROPIUM/ALBUTEROL 0.5-3(2.5)MG/3ML NEB HHN SCH ×7 (01:36→23:55)
[2020-05-31] MEDS: MIDAZOLAM HCL 100 MG in DEXT 5% WATER 80 ML IV PRN ×3 (01:55→23:33)
[2020-05-31] MEDS: LACTULOSE 20G/30ML UDC PO SCH ×3 (02:11→17:02)
[2020-05-31 05:34] LABS: BASOPHILS % 0.3 % (0.0-2.0); EOSINOPHILS % 4.5 % (0.0-5.0); HEMATOCRIT. 23.7 % (36.0-48.0); HEMOGLOBIN. 7.3 g/dL (12.0-16.0); MEAN CORPUSCULAR HEMOGLOBIN 21.6 pg (28.0-32.0); MEAN CORPUSCULAR VOLUME 70.6 fL (81.0-99.0); MEAN PLATELET VOLUME 8.2 fl (7.4-10.4); MONOCYTES % 8.2 % (2.0-8.0); PLATELET 288 x1000/uL (130-400); RED BLOOD CELL COUNT 3.36 mill/uL (4.2-5.4)
[2020-05-31 05:41] LABS: CHLORIDE 106 mEq/L (98-107)
[2020-05-31] MEDS: FERROUS SULFATE 325MG TABLET PO SCH ×3 (05:41→17:02)
[2020-05-31 05:48] LABS: PHOSPHORUS 4.3 mg/dL (2.5-4.9)
[2020-05-31] MEDS: INSULIN LISPRO 100 UNITS/ML SUBCUT SCH ×4 (05:51→18:00)
[2020-05-31] MEDS: FENTANYL CITRATE/PF 2,500 MCG in SODIUM CHLORIDE 0.9% 200 ML IV PRN ×2 (06:50→17:48)
[2020-05-31] MEDS: FAMOTIDINE 20MG/2ML VIAL IV SCH (09:11)
[2020-05-31] MEDS: CALCITRIOL 0.5MCG CAPSULE PO SCH (09:12)
[2020-05-31] MEDS: CALCIUM CARBONATE 1250MG TABLET (500MG ELEMENTAL CALCIUM) PO SCH ×3 (09:12→17:02)
[2020-05-31] MEDS: ZINC SULFATE 220 MG ( 50 ) CAPSULE PO SCH (09:12)
[2020-05-31] MEDS: ASCORBIC ACID 500 MG TABLET PO SCH ×2 (09:12→20:35)
[2020-05-31 09:49] LABS: BG BASE EXCESS 3.7 mmol/L (-2.0-2.0); BG CARBOXYHEMOGLOBIN 0.3 % (0.5-1.5); BG DEOXYHEMOGLOBIN 8.4 % (0.0-5.0); BG FRACTION INSPIRED OXYGEN 75; BG HCO3 ACT 29.2 mmol/L (22.0-26.0); BG METHEMOGLOBIN 0.3 % (0.0-1.5); BG OXYGEN SATURATION 91.5 % (92.0-98.5); BG PCO2 49.6 mmHg (35.0-45.0); BG PH 7.388 (7.350-7.450); BG PO2 62.7 mmHg (75.0-100.0); BG SAMPLE SITE RIGHT RADIAL; BG TOTAL HEMOGLOBIN 8.4 g/dL (12.0-18.0); BG VENT MODE PRVC
[2020-05-31] MEDS: SODIUM CHLORIDE 0.9% 1,000 ML IV SCH (10:07)
[2020-06-01] VITALS (93 sets, daily range): BP systolic 96–164; BP diastolic 57–98
[2020-06-01] MEDS: LACTULOSE 20G/30ML UDC PO SCH ×3 (01:45→18:30)
[2020-06-01] MEDS: IPRATROPIUM/ALBUTEROL 0.5-3(2.5)MG/3ML NEB HHN SCH ×5 (03:53→21:44)
[2020-06-01] MEDS: FENTANYL CITRATE/PF 2,500 MCG in SODIUM CHLORIDE 0.9% 200 ML IV PRN ×2 (05:00→15:55)
[2020-06-01 05:19] LABS: HEMATOCRIT. 23.6 % (36.0-48.0); HEMOGLOBIN. 7.4 g/dL (12.0-16.0); MEAN CORPUSCULAR HEMOGLOBIN 21.9 pg (28.0-32.0); MEAN PLATELET VOLUME 8.7 fl (7.4-10.4); PLATELET 295 x1000/uL (130-400); RED BLOOD CELL COUNT 3.37 mill/uL (4.2-5.4); RED CELL DISTRIBUTION WIDTH 17.2 % (11.6-14.6)
[2020-06-01 05:25] LABS: CHLORIDE 106 mEq/L (98-107)
[2020-06-01] MEDS: INSULIN LISPRO 100 UNITS/ML SUBCUT SCH ×4 (05:43→18:00)
[2020-06-01] MEDS: BLOOD SUGAR DIAGNOSTIC STRIP TEST SCH ×4 (05:43→18:26)
[2020-06-01] MEDS: METOCLOPRAMIDE HCL 10MG/2ML VIAL IV SCH ×4 (05:43→18:26)
[2020-06-01] MEDS: FERROUS SULFATE 325MG TABLET PO SCH ×3 (05:43→18:26)
[2020-06-01] MEDS: SODIUM CHLORIDE 0.9% 1,000 ML IV SCH (07:47)
[2020-06-01] MEDS: MIDAZOLAM HCL 100 MG in DEXT 5% WATER 80 ML IV PRN (09:54)
[2020-06-01] MEDS: DOCUSATE SODIUM 100MG CAPSULE PO PRN (10:00)
[2020-06-01] MEDS: ASCORBIC ACID 500 MG TABLET PO SCH ×2 (10:00→23:01)
[2020-06-01] MEDS: CALCIUM CARBONATE 1250MG TABLET (500MG ELEMENTAL CALCIUM) PO SCH ×3 (10:00→18:26)
[2020-06-01] MEDS: ZINC SULFATE 220 MG ( 50 ) CAPSULE PO SCH (10:00)
[2020-06-01] MEDS: CALCITRIOL 0.5MCG CAPSULE PO SCH (10:00)
[2020-06-01] MEDS: FAMOTIDINE 20MG/2ML VIAL IV SCH (10:01)
[2020-06-01 11:00] LABS: PLATELET ESTIMATE NORMAL
[2020-06-01 13:25] LABS: BG BASE EXCESS 3.2 mmol/L (-2.0-2.0); BG CARBOXYHEMOGLOBIN 0.3 % (0.5-1.5); BG DEOXYHEMOGLOBIN 6.3 % (0.0-5.0); BG FRACTION INSPIRED OXYGEN 75; BG HCO3 ACT 28.4 mmol/L (22.0-26.0); BG METHEMOGLOBIN 0.5 % (0.0-1.5); BG OXYGEN SATURATION 93.6 % (92.0-98.5); BG OXYHEMOGLOBIN 92.9 % (94.0-97.0); BG PCO2 46.9 mmHg (35.0-45.0); BG PO2 72.9 mmHg (75.0-100.0); BG SAMPLE SITE RIGHT RADIAL; BG TOTAL RESPIRATORY RATE 33 b/min; BG VENT MODE PRVC
[2020-06-02] VITALS (70 sets, daily range): BP systolic 86–132; BP diastolic 51–81
[2020-06-02] MEDS: IPRATROPIUM/ALBUTEROL 0.5-3(2.5)MG/3ML NEB HHN SCH ×6 (00:31→20:24)
[2020-06-02] MEDS: METOCLOPRAMIDE HCL 10MG/2ML VIAL IV SCH ×4 (00:44→17:47)
[2020-06-02] MEDS: LACTULOSE 20G/30ML UDC PO SCH ×3 (00:46→17:47)
[2020-06-02] MEDS: SODIUM CHLORIDE 0.9% 1,000 ML IV SCH ×2 (02:58→21:09)
[2020-06-02] MEDS: MIDAZOLAM HCL 100 MG in DEXT 5% WATER 80 ML IV PRN ×4 (02:59→21:08)
[2020-06-02] MEDS: FENTANYL CITRATE/PF 2,500 MCG in SODIUM CHLORIDE 0.9% 200 ML IV PRN ×3 (03:11→21:09)
[2020-06-02 05:23] LABS: CHLORIDE 106 mEq/L (98-107)
[2020-06-02 05:54] LABS: HEMATOCRIT. 22.9 % (36.0-48.0); HEMOGLOBIN. 7.1 g/dL (12.0-16.0); MEAN CORPUSCULAR HEMOGLOBIN 21.9 pg (28.0-32.0); MEAN CORPUSCULAR VOLUME 70.3 fL (81.0-99.0); MEAN PLATELET VOLUME 8.5 fl (7.4-10.4); PLATELET 269 x1000/uL (130-400); RED BLOOD CELL COUNT 3.25 mill/uL (4.2-5.4); RED CELL DISTRIBUTION WIDTH 16.9 % (11.6-14.6)
[2020-06-02] MEDS: FERROUS SULFATE 325MG TABLET PO SCH ×3 (06:16→17:47)
[2020-06-02] MEDS: ERGOCALCIFEROL 50000UNITS CAPSULE PO SCH (09:21)
[2020-06-02] MEDS: CALCIUM CARBONATE 1250MG TABLET (500MG ELEMENTAL CALCIUM) PO SCH ×3 (09:21→17:47)
[2020-06-02] MEDS: ZINC SULFATE 220 MG ( 50 ) CAPSULE PO SCH (09:21)
[2020-06-02] MEDS: ASCORBIC ACID 500 MG TABLET PO SCH (09:21)
[2020-06-02] MEDS: FAMOTIDINE 20MG/2ML VIAL IV SCH (09:21)
[2020-06-02] MEDS: CALCITRIOL 0.5MCG CAPSULE PO SCH (09:21)
[2020-06-02 10:25] LABS: PLATELET ESTIMATE NORMAL
[2020-06-02 10:27] LABS: BG BASE EXCESS 0.7 mmol/L (-2.0-2.0); BG DEOXYHEMOGLOBIN 5.9 % (0.0-5.0); BG FRACTION INSPIRED OXYGEN 75; BG HCO3 ACT 26.2 mmol/L (22.0-26.0); BG METHEMOGLOBIN 0.3 % (0.0-1.5); BG OXYHEMOGLOBIN 92.8 % (94.0-97.0); BG PCO2 46.6 mmHg (35.0-45.0); BG PH 7.367 (7.350-7.450); BG PO2 74.4 mmHg (75.0-100.0); BG SAMPLE SITE RIGHT RADIAL; BG TOTAL HEMOGLOBIN 7.6 g/dL (12.0-18.0); BG VENT MODE VENT - PRVC
[2020-06-02 10:33] LABS: PHOSPHORUS 4.3 mg/dL (2.5-4.9)
[2020-06-03] VITALS (83 sets, daily range): BP systolic 81–174; BP diastolic 49–109
[2020-06-03] MEDS: IPRATROPIUM/ALBUTEROL 0.5-3(2.5)MG/3ML NEB HHN SCH ×6 (00:09→21:28)
[2020-06-03] MEDS: METOCLOPRAMIDE HCL 10MG/2ML VIAL IV SCH ×5 (00:32→23:07)
[2020-06-03] MEDS: LACTULOSE 20G/30ML UDC PO SCH ×3 (00:32→17:57)
[2020-06-03] MEDS: MIDAZOLAM HCL 100 MG in DEXT 5% WATER 80 ML IV PRN ×3 (04:01→18:19)
[2020-06-03] MEDS: FENTANYL CITRATE/PF 2,500 MCG in SODIUM CHLORIDE 0.9% 200 ML IV PRN ×3 (04:02→23:09)
[2020-06-03] MEDS: FERROUS SULFATE 325MG TABLET PO SCH ×3 (06:08→17:57)
[2020-06-03 08:26] LABS: BG BASE EXCESS -0.2 mmol/L (-2.0-2.0); BG CARBOXYHEMOGLOBIN 0.8 % (0.5-1.5); BG DEOXYHEMOGLOBIN 8.3 % (0.0-5.0); BG HCO3 ACT 25.6 mmol/L (22.0-26.0); BG METHEMOGLOBIN 0.4 % (0.0-1.5); BG OXYGEN SATURATION 91.6 % (92.0-98.5); BG OXYHEMOGLOBIN 90.5 % (94.0-97.0); BG PCO2 48.1 mmHg (35.0-45.0); BG PH 7.344 (7.350-7.450); BG PO2 65.7 mmHg (75.0-100.0); BG SAMPLE SITE RIGHT RADIAL; BG TOTAL HEMOGLOBIN 7.3 g/dL (12.0-18.0); BG VENT MODE VENT/PRVC
[2020-06-03] MEDS ORDERED: NA PHOS,M-B/NA PHOS,DI-BA ENEMA 118ML PR NR (09:30)
[2020-06-03] MEDS: CALCITRIOL 0.5MCG CAPSULE PO SCH (10:48)
[2020-06-03] MEDS: SENNOSIDES/DOCUSATE SOD 8.6/50MG TABLET NG SCH ×3 (10:49→17:57)
[2020-06-03] MEDS: CALCIUM CARBONATE 1250MG TABLET (500MG ELEMENTAL CALCIUM) PO SCH ×3 (10:49→17:57)
[2020-06-03] MEDS: POLYETHYLENE GLYCOL 3350 (17GM) 1 DOSE PACK PO SCH ×2 (10:49→11:10)
[2020-06-03 10:50] LABS: BASOPHILS % 0.7 % (0.0-2.0); EOSINOPHILS % 4.6 % (0.0-5.0); LYMPHOCYTES % 10.3 % (20.0-50.0); MEAN CORPUSCULAR HEMOGLOBIN 21.7 pg (28.0-32.0); MEAN CORPUSCULAR VOLUME 70.6 fL (81.0-99.0); MEAN PLATELET VOLUME 8.6 fl (7.4-10.4); MONOCYTES % 9.1 % (2.0-8.0); NEUTROPHILS % 75.3 % (40.0-76.0); PLATELET 282 x1000/uL (130-400); RED BLOOD CELL COUNT 3.25 mill/uL (4.2-5.4); RED CELL DISTRIBUTION WIDTH 17.1 % (11.6-14.6)
[2020-06-03 11:05] LABS: CHLORIDE 106 mEq/L (98-107)
[2020-06-03 11:08] LABS: HEMATOCRIT. 22.9 % (36.0-48.0)
[2020-06-03] MEDS: LABETALOL 5MG/ML SYR 20 MG/4 ML SYRINGE IV PRN (18:53)
[2020-06-03] MEDS: FAMOTIDINE 20MG TABLET PO SCH (20:53)
[2020-06-04] VITALS (100 sets, daily range): BP systolic 66–214; BP diastolic 32–121
[2020-06-04] MEDS: IPRATROPIUM/ALBUTEROL 0.5-3(2.5)MG/3ML NEB HHN SCH ×5 (00:36→15:59)
[2020-06-04] MEDS: MIDAZOLAM HCL 100 MG in DEXT 5% WATER 80 ML IV PRN ×4 (01:42→23:30)
[2020-06-04] MEDS: LACTULOSE 20G/30ML UDC PO SCH ×3 (01:42→17:04)
[2020-06-04] MEDS: METOCLOPRAMIDE HCL 10MG/2ML VIAL IV SCH ×3 (05:17→17:04)
[2020-06-04] MEDS: FERROUS SULFATE 325MG TABLET PO SCH ×3 (05:17→17:04)
[2020-06-04] MEDS: FAMOTIDINE 20MG TABLET PO SCH ×2 (08:12→21:00)
[2020-06-04] MEDS: CALCITRIOL 0.5MCG CAPSULE PO SCH (08:12)
[2020-06-04] MEDS: SENNOSIDES/DOCUSATE SOD 8.6/50MG TABLET NG SCH ×2 (08:12→17:04)
[2020-06-04] MEDS: POLYETHYLENE GLYCOL 3350 (17GM) 1 DOSE PACK PO SCH (08:12)
[2020-06-04] MEDS: CALCIUM CARBONATE 1250MG TABLET (500MG ELEMENTAL CALCIUM) PO SCH ×3 (08:12→17:04)
[2020-06-04 09:20] LABS: BG BASE EXCESS 0.9 mmol/L (-2.0-2.0); BG DEOXYHEMOGLOBIN 11.1 % (0.0-5.0); BG FRACTION INSPIRED OXYGEN 80; BG METHEMOGLOBIN 0.3 % (0.0-1.5); BG OXYGEN SATURATION 88.8 % (92.0-98.5); BG OXYHEMOGLOBIN 87.6 % (94.0-97.0); BG PCO2 43.7 mmHg (35.0-45.0); BG PH 7.392 (7.350-7.450); BG PO2 56.4 mmHg (75.0-100.0); BG SAMPLE SITE RIGHT RADIAL; BG TOTAL HEMOGLOBIN 8.4 g/dL (12.0-18.0); BG VENT MODE VENT - PRVC
[2020-06-04 09:30] LABS: BASOPHILS % 0.5 % (0.0-2.0); EOSINOPHILS % 3.5 % (0.0-5.0); HEMATOCRIT. 24.3 % (36.0-48.0); HEMOGLOBIN. 7.6 g/dL (12.0-16.0); LYMPHOCYTES % 9.3 % (20.0-50.0); MEAN CORPUSCULAR HEMOGLOBIN 22.6 pg (28.0-32.0); MEAN PLATELET VOLUME 8.4 fl (7.4-10.4); NEUTROPHILS % 76.7 % (40.0-76.0); PLATELET 270 x1000/uL (130-400); RED BLOOD CELL COUNT 3.37 mill/uL (4.2-5.4); RED CELL DISTRIBUTION WIDTH 18.3 % (11.6-14.6)
[2020-06-04 09:40] LABS: CHLORIDE 108 mEq/L (98-107)
[2020-06-04 09:46] LABS: PHOSPHORUS 3.9 mg/dL (2.5-4.9)
[2020-06-04] MEDS: FENTANYL CITRATE/PF 2,500 MCG in SODIUM CHLORIDE 0.9% 200 ML IV PRN ×2 (10:25→18:42)
[2020-06-04] MEDS ORDERED: PROPOFOL 10MG/ML 100ML 100 ML IV PRN (10:30)
[2020-06-04] MEDS: PROPOFOL 10MG/ML 100ML 100 ML IV PRN ×4 (11:49→22:33)
[2020-06-04] MEDS ORDERED: SORBITOL 70% SOLN 30ML NG NR (13:15)
[2020-06-04] MEDS: NOREPINEPHRINE 32 MG in DEXT 5% WATER 218 ML IV PRN (16:09)
[2020-06-05] VITALS (90 sets, daily range): BP systolic 71–213; BP diastolic 16–114
[2020-06-05] MEDS: METOCLOPRAMIDE HCL 10MG/2ML VIAL IV SCH ×4 (00:28→17:43)
[2020-06-05] MEDS: IPRATROPIUM/ALBUTEROL 0.5-3(2.5)MG/3ML NEB HHN SCH ×6 (00:46→20:35)
[2020-06-05] MEDS: LACTULOSE 20G/30ML UDC PO SCH ×3 (01:41→17:43)
[2020-06-05] MEDS: PROPOFOL 10MG/ML 100ML 100 ML IV PRN ×7 (01:42→23:58)
[2020-06-05] MEDS: FENTANYL CITRATE/PF 2,500 MCG in SODIUM CHLORIDE 0.9% 200 ML IV PRN ×3 (01:55→19:10)
[2020-06-05 06:04] LABS: BASOPHILS % 0.4 % (0.0-2.0); EOSINOPHILS % 4.7 % (0.0-5.0); HEMATOCRIT. 25.8 % (36.0-48.0); HEMOGLOBIN. 7.8 g/dL (12.0-16.0); LYMPHOCYTES % 10.1 % (20.0-50.0); MEAN CORPUSCULAR HEMOGLOBIN 22.3 pg (28.0-32.0); MEAN CORPUSCULAR VOLUME 73.7 fL (81.0-99.0); MEAN PLATELET VOLUME 8.7 fl (7.4-10.4); NEUTROPHILS % 77.8 % (40.0-76.0); PLATELET 287 x1000/uL (130-400); RED CELL DISTRIBUTION WIDTH 18.8 % (11.6-14.6)
[2020-06-05] MEDS: MIDAZOLAM HCL 100 MG in DEXT 5% WATER 80 ML IV PRN ×3 (06:19→23:27)
[2020-06-05] MEDS: FERROUS SULFATE 325MG TABLET PO SCH ×3 (06:19→17:40)
[2020-06-05] MEDS: FAMOTIDINE 20MG TABLET PO SCH ×2 (09:12→21:50)
[2020-06-05] MEDS: SENNOSIDES/DOCUSATE SOD 8.6/50MG TABLET NG SCH ×2 (09:12→17:40)
[2020-06-05] MEDS: CALCITRIOL 0.5MCG CAPSULE PO SCH (09:12)
[2020-06-05] MEDS: CALCIUM CARBONATE 1250MG TABLET (500MG ELEMENTAL CALCIUM) PO SCH ×3 (09:12→17:40)
[2020-06-05] MEDS: POLYETHYLENE GLYCOL 3350 (17GM) 1 DOSE PACK PO SCH (09:12)
[2020-06-05] MEDS: NOREPINEPHRINE 32 MG in DEXT 5% WATER 218 ML IV PRN (18:13)
[2020-06-06] VITALS (112 sets, daily range): BP systolic 59–186; BP diastolic 36–113
[2020-06-06] MEDS: IPRATROPIUM/ALBUTEROL 0.5-3(2.5)MG/3ML NEB HHN SCH ×6 (00:33→21:48)
[2020-06-06] MEDS: METOCLOPRAMIDE HCL 10MG/2ML VIAL IV SCH ×4 (00:49→17:14)
[2020-06-06] MEDS: LACTULOSE 20G/30ML UDC PO SCH ×3 (00:51→17:14)
[2020-06-06] MEDS: PROPOFOL 10MG/ML 100ML 100 ML IV PRN ×7 (02:58→21:43)
[2020-06-06 05:38] LABS: HEMATOCRIT. 26.4 % (36.0-48.0); HEMOGLOBIN. 8.1 g/dL (12.0-16.0); MEAN CORPUSCULAR HEMOGLOBIN 22.9 pg (28.0-32.0); MEAN CORPUSCULAR VOLUME 74.7 fL (81.0-99.0); MEAN PLATELET VOLUME 8.9 fl (7.4-10.4); PLATELET 302 x1000/uL (130-400); RED BLOOD CELL COUNT 3.53 mill/uL (4.2-5.4); RED CELL DISTRIBUTION WIDTH 19.6 % (11.6-14.6)
[2020-06-06] MEDS: FERROUS SULFATE 325MG TABLET PO SCH ×3 (06:20→17:15)
[2020-06-06] MEDS: MIDAZOLAM HCL 100 MG in DEXT 5% WATER 80 ML IV PRN ×3 (06:21→19:00)
[2020-06-06] MEDS: FENTANYL CITRATE/PF 2,500 MCG in SODIUM CHLORIDE 0.9% 200 ML IV PRN ×2 (06:22→14:04)
[2020-06-06 07:40] LABS: PLATELET ESTIMATE NORMAL
[2020-06-06] MEDS ORDERED: SODIUM POLYSTYRENE SULFONATE 15 G/60 ML BOT NG SCH (08:45)
[2020-06-06] MEDS: CALCITRIOL 0.5MCG CAPSULE PO SCH ×2 (09:00→11:57)
[2020-06-06 09:24] LABS: BG BASE EXCESS -6.9 mmol/L (-2.0-2.0); BG CARBOXYHEMOGLOBIN 0.3 % (0.5-1.5); BG DEOXYHEMOGLOBIN 25.8 % (0.0-5.0); BG FRACTION INSPIRED OXYGEN 100; BG HCO3 ACT 21.9 mmol/L (22.0-26.0); BG METHEMOGLOBIN 0.2 % (0.0-1.5); BG OXYGEN SATURATION 74.1 % (92.0-98.5); BG OXYHEMOGLOBIN 73.7 % (94.0-97.0); BG PCO2 62.2 mmHg (35.0-45.0); BG PH 7.164 (7.350-7.450); BG SAMPLE SITE RIGHT RADIAL; BG TOTAL HEMOGLOBIN 9.4 g/dL (12.0-18.0); BG VENT MODE PRVC
[2020-06-06] MEDS: SENNOSIDES/DOCUSATE SOD 8.6/50MG TABLET NG SCH ×2 (11:57→17:15)
[2020-06-06] MEDS: FAMOTIDINE 20MG TABLET PO SCH (11:57)
[2020-06-06] MEDS: POLYETHYLENE GLYCOL 3350 (17GM) 1 DOSE PACK PO SCH (11:57)
[2020-06-06] MEDS: CALCIUM CARBONATE 1250MG TABLET (500MG ELEMENTAL CALCIUM) PO SCH ×3 (11:57→17:14)
[2020-06-06 17:07] LABS: BG BASE EXCESS -7.2 mmol/L (-2.0-2.0); BG CARBOXYHEMOGLOBIN 0.2 % (0.5-1.5); BG DEOXYHEMOGLOBIN 12.8 % (0.0-5.0); BG FRACTION INSPIRED OXYGEN 100; BG HCO3 ACT 20.4 mmol/L (22.0-26.0); BG METHEMOGLOBIN 0.4 % (0.0-1.5); BG OXYGEN SATURATION 87.1 % (92.0-98.5); BG OXYHEMOGLOBIN 86.6 % (94.0-97.0); BG PCO2 51.4 mmHg (35.0-45.0); BG PH 7.216 (7.350-7.450); BG PO2 60.5 mmHg (75.0-100.0); BG SAMPLE SITE LEFT RADIAL; BG TOTAL HEMOGLOBIN 9.1 g/dL (12.0-18.0); BG TOTAL RESPIRATORY RATE 34 b/min; BG VENT MODE PRVC
[2020-06-06] MEDS: NOREPINEPHRINE 32 MG in DEXT 5% WATER 218 ML IV PRN (17:20)
[2020-06-06] MEDS ORDERED: EPINEPHRINE 10 MG in SODIUM CHLORIDE 0.9% 240 ML IV PRN (18:45)
[2020-06-07] VITALS (68 sets, daily range): BP systolic 68–147; BP diastolic 24–96
[2020-06-07] MEDS: METOCLOPRAMIDE HCL 10MG/2ML VIAL IV SCH ×3 (00:07→11:49)
[2020-06-07] MEDS: PROPOFOL 10MG/ML 100ML 100 ML IV PRN ×6 (00:09→14:03)
[2020-06-07] MEDS: FENTANYL CITRATE/PF 2,500 MCG in SODIUM CHLORIDE 0.9% 200 ML IV PRN ×2 (00:19→11:01)
[2020-06-07] MEDS: IPRATROPIUM/ALBUTEROL 0.5-3(2.5)MG/3ML NEB HHN SCH ×4 (00:56→12:18)
[2020-06-07] MEDS: MIDAZOLAM HCL 100 MG in DEXT 5% WATER 80 ML IV PRN ×2 (01:57→08:58)
[2020-06-07] MEDS: LACTULOSE 20G/30ML UDC PO SCH ×2 (01:57→08:59)
[2020-06-07 05:48] LABS: HEMATOCRIT. 25.5 % (36.0-48.0); MEAN PLATELET VOLUME 8.8 fl (7.4-10.4); PLATELET 347 x1000/uL (130-400); RED CELL DISTRIBUTION WIDTH 19.2 % (11.6-14.6)
[2020-06-07] MEDS: FERROUS SULFATE 325MG TABLET PO SCH ×2 (07:08→11:49)
[2020-06-07 08:46] LABS: BG BASE EXCESS -5.9 mmol/L (-2.0-2.0); BG CARBOXYHEMOGLOBIN 0.1 % (0.5-1.5); BG DEOXYHEMOGLOBIN 29.1 % (0.0-5.0); BG HCO3 ACT 21.4 mmol/L (22.0-26.0); BG METHEMOGLOBIN 0.3 % (0.0-1.5); BG OXYGEN SATURATION 70.8 % (92.0-98.5); BG OXYHEMOGLOBIN 70.5 % (94.0-97.0); BG PCO2 51.8 mmHg (35.0-45.0); BG PH 7.234 (7.350-7.450); BG PO2 42.5 mmHg (75.0-100.0); BG SAMPLE SITE RIGHT RADIAL; BG TOTAL HEMOGLOBIN 8.8 g/dL (12.0-18.0); BG VENT MODE VENT- PRVC
[2020-06-07] MEDS: SENNOSIDES/DOCUSATE SOD 8.6/50MG TABLET NG SCH (08:58)
[2020-06-07] MEDS: CALCIUM CARBONATE 1250MG TABLET (500MG ELEMENTAL CALCIUM) PO SCH ×2 (08:58→13:39)
[2020-06-07] MEDS: CALCITRIOL 0.5MCG CAPSULE PO SCH (08:58)
[2020-06-07] MEDS: POLYETHYLENE GLYCOL 3350 (17GM) 1 DOSE PACK PO SCH (08:58)
[2020-06-07] MEDS ORDERED: FAMOTIDINE 20MG TABLET PO SCH (09:00)
[2020-06-07] MEDS ORDERED: PROPOFOL 10MG/ML 100ML 100 ML IV PRN (11:30)
[2020-06-07] MEDS ORDERED: DEXTROSE 50% WATER 50ML SYRINGE IV NR (11:30)
[2020-06-07] MEDS ORDERED: INSULIN REGULAR (HUMULIN R) 300UNITS/3ML VIAL IV NR (11:30)
[2020-06-07] MEDS ORDERED: VASOPRESSIN 20 UNIT in SODIUM CHLORIDE 0.9% 99 ML IV PRN (12:00)
[2020-06-07] MEDS ORDERED: PHENYLEPHRINE 100 MG in DEXT 5% WATER 240 ML IV PRN (12:00)
[2020-06-07] MEDS: NOREPINEPHRINE 32 MG in DEXT 5% WATER 218 ML IV PRN (12:49)
[2020-06-07] MEDS ORDERED: CALCIUM CHLORIDE 1,000 MG in DEXT 5% WATER 90 ML IV NR (13:00)
[2020-06-07 14:15] LABS: PLATELET ESTIMATE NORMAL
== END 2020-06-07 15:59 | disposition expired | DRG 3 ==
LOC: ER 14:59 → EDBEDREQ 16:15 → MICUSO 16:23 → EDBEDREQSVC 16:25 → EDBEDREQ 16:25 → ENRESERV 19:25
PROVIDERS: ADMIT Internal Medicine; ATTEND Internal Medicine
PROC: XW033E5 Introduction of Remdesivir Anti-infective into Peripheral Vein, Percutaneous Approach, New Technology Group 5 (ICD-10-PCS; 2020-05-05)
PROC: 02HV33Z Insertion of Infusion Device into Superior Vena Cava, Percutaneous Approach (ICD-10-PCS; 2020-05-05)
PROC: B548ZZA Ultrasonography of Superior Vena Cava, Guidance (ICD-10-PCS; 2020-05-05)
PROC: XW13325 Transfusion of Convalescent Plasma (Nonautologous) into Peripheral Vein, Percutaneous Approach, New Technology Group 5 (ICD-10-PCS; 2020-05-08)
PROC: 30233K1 Transfusion of Nonautologous Frozen Plasma into Peripheral Vein, Percutaneous Approach (ICD-10-PCS; 2020-05-08)
PROC: 5A1955Z Respiratory Ventilation, Greater than 96 Consecutive Hours (ICD-10-PCS; principal; 2020-05-16)
PROC: 0BH17EZ Insertion of Endotracheal Airway into Trachea, Via Natural or Artificial Opening (ICD-10-PCS; 2020-05-16)
PROC: 5A09557 Assistance with Respiratory Ventilation, Greater than 96 Consecutive Hours, Continuous Positive Airway Pressure (ICD-10-PCS; 2020-06-03)
PROC: 30233N1 Transfusion of Nonautologous Red Blood Cells into Peripheral Vein, Percutaneous Approach (ICD-10-PCS; 2020-06-04)
PROC: 0GBJ0ZZ Excision of Thyroid Gland Isthmus, Open Approach (ICD-10-PCS; 2020-06-06)
PROC: 0B113F4 Bypass Trachea to Cutaneous with Tracheostomy Device, Percutaneous Approach (ICD-10-PCS; 2020-06-06)
DX: A41.89 Other specified sepsis (principal); U07.1 COVID-19; J12.89 Other viral pneumonia; J96.01 Acute respiratory failure with hypoxia; R65.21 Severe sepsis with septic shock; J15.9 Unspecified bacterial pneumonia; N17.0 Acute kidney failure with tubular necrosis; E44.0 Moderate protein-calorie malnutrition; E87.2 Acidosis; B37.49 Other urogenital candidiasis; E87.1 Hypo-osmolality and hyponatremia; G93.40 Encephalopathy, unspecified; Z68.42 Body mass index [BMI] 45.0-49.9, adult; D68.59 Other primary thrombophilia; Z66 Do not resuscitate; D50.9 Iron deficiency anemia, unspecified; E11.9 Type 2 diabetes mellitus without complications; E66.01 Morbid (severe) obesity due to excess calories; E78.5 Hyperlipidemia, unspecified; E87.6 Hypokalemia; D69.6 Thrombocytopenia, unspecified; I11.9 Hypertensive heart disease without heart failure; J45.909 Unspecified asthma, uncomplicated; R74.01 Elevation of levels of liver transaminase levels; E87.8 Other disorders of electrolyte and fluid balance, not elsewhere classified; K59.00 Constipation, unspecified; Z78.1 Physical restraint status; Z79.84 Long term (current) use of oral hypoglycemic drugs; Z79.01 Long term (current) use of anticoagulants; Z71.3 Dietary counseling and surveillance; Z79.899 Other long term (current) drug therapy
CPT/HCPCS: 36415; 36600; 71045; 74018; 76700; 76937; 80048; 80053; 80061; 81003; 82043; 82270; 82330; 82375; 82550; 82570; 82728; 82805; 82962; 83036; 83540; 83550; 83605; 83615; 83735; 83880; 83935; 84100; 84134; 84145; 84300; 84478; 84484; 85014; 85018; 85025; 85044; 85049; 85379; 85384; 86140; 86705; 86709; 86803; 86850; 86900; 86920; 86927; 87106; 87340; 87635; 93005; 94640; 94660; 96365; 99291; A6261; C1725; C1769; J0456; J0692; J0696; J1100; J1650; J1815; J2060; J2250; J2270; J2370; J2405; J2543; J2704; J2765; J3010; J3475; J3480; J3490; J7030; J7040; J7042; J7050; J7060; J7070; J7608; P9016; P9017; P9047; Q9957; A4315